=== PATIENT | male | born 1940 | race Caucasian/White ===

== ENCOUNTER 2017-08-11 07:48 | Emergency (ER) | payer MEDICARE ==
[~2017-08-11] VITALS: Ht 188 cm; Wt 108.9 kg
[~2017-08-11 07:48] MED LIST: ASCO500 PO; ASPI81CH PO; ASPI81EC PO; Aspirin EC81 MG PO; C Complex1000 MG PO; CITA20 PO; CLOP75 PO; CYCL10 PO; Cleocin HCl300 MG PO; DOC250 PO; ESCI20 PO; FLUO20; FURO20 PO; FURO40 PO; GABA300 PO; GLUCOPHAGE; HYDACE5 PO; HYDR-86 PO; INSULANI SUBQ; INSULANPEN SC; LISI20 PO; LISI5 PO; LORA.5 PO; MELA3 PO; METF500C PO; METO25ER PO; METOPROLOL SUCCINATE; NAPR500; NATE60; Norvasc2.5 MG PO; ONDA4 PO; ONDA4ODT MM; OXYACE5T; OXYACE5T PO; OXYC5; POTCHL10ER PO; PRAVASTATIN SOD10 MG PO; PROACE100; Percocet 5-3251 EACH PO; SIMV40 PO; TAMS.4ER PO; Ultram50 MG PO; VICODIN 5-3001 EACH; VICODIN 5-3001 EACH PO; VITAMIN C; ZOLP12.5 PO
[2017-08-11] MEDS ORDERED: METF500C PO (08:32)
[2017-08-11] MEDS ORDERED: LISI5 PO (08:34)
== END 2017-08-11 09:42 | disposition home or self-care (01) ==
LOC: ER 07:48
DX: S70.01XA Contusion of right hip, initial encounter (principal); M25.512 Pain in left shoulder; M25.511 Pain in right shoulder; E11.40 Type 2 diabetes mellitus with diabetic neuropathy, unspecified; I11.0 Hypertensive heart disease with heart failure; I50.9 Heart failure, unspecified; E78.5 Hyperlipidemia, unspecified; F32.9 Major depressive disorder, single episode, unspecified; Z88.2 Allergy status to sulfonamides; Z88.1 Allergy status to other antibiotic agents; Z79.899 Other long term (current) drug therapy; Z79.4 Long term (current) use of insulin; Z86.73 Personal history of transient ischemic attack (TIA), and cerebral infarction without residual deficits; Z87.891 Personal history of nicotine dependence; W01.0XXA Fall on same level from slipping, tripping and stumbling without subsequent striking against object, initial encounter
CPT/HCPCS: 73502; 99283

== ENCOUNTER 2018-03-30 14:58 | Inpatient (IN) | payer MEDICARE ==
[~2018-03-30] VITALS: Ht 190.5 cm; Wt 104.1 kg
[~2018-03-30 14:58] MED LIST changes: -OXYACE5T; +Percocet 10-321 EACH
[2018-03-30 16:16] LABS: BASOPHILS ABSOLUTE AUTO 0.05 K/mm3 (0.00-0.23); BASOPHILS PERCENT AUTO 0 % (0-2); EOSINOPHILS ABSOLUTE AUTO 0.01 K/mm3 (0.00-0.68); EOSINOPHILS PERCENT AUTO 0 % (0-6); Hematocrit 42.1 % (37.0-53.0); IMMATURE GRAN ABSOLUTE AUTO 0.17 K/mm3 (0.00-0.10); IMMATURE GRAN PERCENT AUTO 1 % (0-1); LYMPHOCYTES ABSOLUTE AUTO 0.68 K/mm3 (0.84-5.20); LYMPHOCYTES PERCENT AUTO 4 % (21-46); MONOCYTES ABSOLUTE AUTO 1.27 K/mm3 (0.16-1.47); MONOCYTES PERCENT AUTO 8 % (4-13); Mean Corpuscular HGB 29.9 pg (26.0-34.0); Mean Corpuscular HGB Conc 33.3 g/dL (31.5-36.5); Mean Corpuscular Volume 90 fL (80-100); Mean Platelet Volume 9.4 fL (9.1-12.4); NEUTROPHILS ABSOLUTE AUTO 14.15 K/mm3 (1.96-9.15); NEUTROPHILS PERCENT AUTO 87 % (41-73); Platelet Count 317 K/mm3 (150-400); RDW Coefficient Variation 12.4 % (11.7-14.2); RDW Standard Deviation 40.8 fL (35.1-46.3); Red Blood Cell Count 4.69 M/mm3 (4.30-5.90); White Blood Cell Count 16.33 K/mm3 (4.00-11.30)
[2018-03-30 16:37] LABS: International Normalized Ratio 1.15
[2018-03-30 16:40] LABS: Troponin I 0.075 ng/mL (0.000-0.040)
[2018-03-30 16:46] LABS: Alanine Aminotransfer (ALT/SGP 10 U/L (12-78); Albumin, Blood 2.1 g/dL (3.4-5.0); Albumin/Globulin Ratio 0.4 (0.8-1.8); Alk Phos 167 U/L (50-136); Anion Gap 15 mmol/L (6-16); Aspartate Aminotrans (AST/SGOT 16 U/L (12-37); Bilirubin, Total 1.2 mg/dL (0.1-1.0); Blood Urea Nitrogen 25 mg/dL (8-24); Bun/Creatinine Ratio 27.7 (12.0-20.0); CO2, Blood 21 mmol/L (21-32); Calcium, Blood 8.7 mg/dL (8.5-10.1); Chloride, Blood 90 mmol/L (98-108); Globulin, Blood 5.7 g/dL (2.2-4.0); Glomerular Filtration Rate >60 (60-); Glucose, Blood 304 mg/dL (70-99); Potassium, Blood 4.3 mmol/L (3.5-5.5); Sodium, Blood 126 mmol/L (136-145); Total Protein, Blood 7.8 g/dL (6.4-8.2)
[2018-03-30] MEDS ORDERED: CLOP75 PO (18:19)
[2018-03-30] MEDS ORDERED: INSULANPEN SC (18:19)
[2018-03-30] MEDS ORDERED: METF500C PO (18:19)
[2018-03-30] MEDS ORDERED: CITA20 PO (18:20)
[2018-03-30] MEDS ORDERED: FURO20 PO (18:20)
[2018-03-30] MEDS ORDERED: POTCHL10ER PO (18:20)
[2018-03-30] MEDS ORDERED: GABA300 PO (18:20)
[2018-03-30] MEDS ORDERED: ONDA8 PO (18:21)
[2018-03-30] MEDS ORDERED: Oxycodone-Apap1 EAC3 PO ×2 (18:21→18:23)
[2018-03-30] MEDS ORDERED: LISI20 PO (18:22)
--- NOTE | 2018-03-30 21:30 | NUR ---
ASSUMED CARE- PT ARRIVES TO [facility] FROM ER VIA GURNEY AND SLIDES HIMSELF OVER TO HOSPITAL BED WITH MINIMAL ASSIST. PT IS AOX4 AT THIS TIME. BLOOD PRESSURE IS HYPERTENSIVE- PT TO BE MEDICATED WITH METOPROLOL, ALL OTHER VSS. PT REPORTING PAIN TO L SHOULDER THAT IS MANAGEABLE AT THIS TIME.LUNG SOUNDS CLEAR THROUGHOUT, PT NOTED TO BE WEAK. REPORTS THAT HE USES A WALKER AT BASELINE. PT ORIENTED TO ROOM AND CALL LIGHT SYSTEM, INFORMED TO CALL FOR ASSISTANCE WITH AMBULATION. WILL CONTINUE WITH ASSESSMENT AND ADMISSION. BED IN LOW POSITION, CALL LIGHT IN REACH. BED ALARM SET FOR SAFETY.
[2018-03-30] MEDS ORDERED: MELATONIN 10 M1 EACH PO (22:34)
[2018-03-30] MEDS ORDERED: CYCL10 PO (22:35)
[2018-03-30] MEDS ORDERED: Fish Oil Conc1 EACH PO (22:36)
[2018-03-30] MEDS ORDERED: ASCO500 PO (22:36)
--- NOTE | 2018-03-31 03:30 | NUR ---
PHYSICIAN CONTACTED- PT REPORTING CONTINUED PAIN OF 10/10 UPON WAKING AFTER BEING MEDICATED FOR PAIN INITIALLY. DR GAUTHIER CONTACTED AND ORDERS RECEIVED FOR HOME DOSE OF PERCOCET. WILL INPUT ORDERS AND ADMINISTER.
[2018-03-31 04:07] LABS: BASOPHILS ABSOLUTE AUTO 0.03 K/mm3 (0.00-0.23); BASOPHILS PERCENT AUTO 0 % (0-2); EOSINOPHILS ABSOLUTE AUTO 0.06 K/mm3 (0.00-0.68); EOSINOPHILS PERCENT AUTO 0 % (0-6); Hematocrit 38.7 % (37.0-53.0); Hemoglobin 13.1 g/dL (13.5-17.5); IMMATURE GRAN ABSOLUTE AUTO 0.14 K/mm3 (0.00-0.10); IMMATURE GRAN PERCENT AUTO 1 % (0-1); LYMPHOCYTES PERCENT AUTO 7 % (21-46); MONOCYTES ABSOLUTE AUTO 1.39 K/mm3 (0.16-1.47); MONOCYTES PERCENT AUTO 9 % (4-13); Mean Corpuscular HGB 29.1 pg (26.0-34.0); Mean Corpuscular HGB Conc 33.9 g/dL (31.5-36.5); Mean Platelet Volume 9.7 fL (9.1-12.4); NEUTROPHILS ABSOLUTE AUTO 12.73 K/mm3 (1.96-9.15); NEUTROPHILS PERCENT AUTO 83 % (41-73); Platelet Count 330 K/mm3 (150-400); RDW Coefficient Variation 12.4 % (11.7-14.2); RDW Standard Deviation 39.3 fL (35.1-46.3); White Blood Cell Count 15.35 K/mm3 (4.00-11.30)
[2018-03-31 04:10] LABS: Mean Corpuscular Volume 86 fL (80-100)
[2018-03-31 04:35] LABS: Anion Gap 10 mmol/L (6-16); Blood Urea Nitrogen 24 mg/dL (8-24); Bun/Creatinine Ratio 28.1 (12.0-20.0); CHOL/HDL RATIO 4.2; CO2, Blood 25 mmol/L (21-32); Chloride, Blood 95 mmol/L (98-108); Cholesterol 71 mg/dL (50-200); Creatinine, Blood 0.85 mg/dL (0.60-1.20); Glomerular Filtration Rate >60 (60-); Glucose, Blood 179 mg/dL (70-99); HDL Cholesterol 17 mg/dL (>39); LDL/HDL RATIO 1.8; Low Density Lipoprotein Chol 30 mg/dL (0-110); Potassium, Blood 3.8 mmol/L (3.5-5.5); Sodium, Blood 130 mmol/L (136-145); Triglycerides 119 mg/dL (30-160); Very Low Density Lipoprot Chol 23 mg/dL (6-32)
--- NOTE | 2018-03-31 06:45 | NUR ---
SHIFT SUMMARY- PT HAS REMAINED AOX4 THROUGHOUT SHIFT WITH SOME EPISODES OF DISORIENTATION- REORIENTED WELL. BLOOD PRESSURE ELEVATED UPON ARRIVAL, PT MEDCATED WITH HYDRALAZINE ONCE WITH DECREASE IN BLOOD PRESSURE. PT HAS BEEN COOPERATIVE WITH CARE. PT NOTED TO HAVE SOME APHASIA THROUGHOUT THE NIGHT AND DIFFICULTY EXPRESSING NEEDS AT TIMES. PT MEDICATED TWICE FOR PAIN TO LEFT SHOULDER THAT INCREASED TO 10/10 UPON LYING ON LEFT SIDE WHILE SLEEPING. PT WITH IMPULSIVE TENDENCIES AND ATTEMPTS TO SELF-AMBULATE OCCASIONALLY, ENCOURAGED TO CALL FOR ASSISTANCE. BED ALARM SET FOR SAFETY. NO OTHER CHANGES NOTED FROM INITIAL ASSESSMENT. WILL CONTINUE TO MONITOR AND REPORT TO ONCOMING RN. BED IN LOW POSITION,CALL LIGHT IN REACH.
--- NOTE | 2018-03-31 10:46 | NUR ---
ECHOCARDIOGRAM COMPLETE
--- NOTE | 2018-03-31 16:29 | NUR ---
NOTE PT ALERT AND ORIENTED. SR. NO ECTOPY. VSS. NO FEVER. ORTHO HERE TO SEE PT LEFT SHOULDER. NO ORDERS AT THIS TIME. PT HAS STEPT OUT FOR AWHILE. CALLED TO REQUEST AN MRI OF HIS HEAD TO TRY AND DX DEMENTIA TO QUALIFY HIM FOR MEDICADE. PT RESTING. BED ALARM ON. CONTINUE POT.
--- NOTE | 2018-03-31 17:35 | NUR ---
Per admit trigger, I met with Mr. Chirinos to discuss advanced care planning. He is very tired and visit kept short. He did not believe he needed documentation of his wishes as his "knows what to do." I will remain available.
--- NOTE | 2018-04-01 06:38 | NUR ---
SHIFT SUMMARY- PT HAS REMAINED ORIENTED TO SELF THOUGHOUT THE NIGHT, REQUIRING FREQUENT ORIENTATION TO TIME AND PLACE, BUT HAS BEEN MORE ORIENTED THIS AM AND ABLE TO RETAIN INFORMATION MORE CLEARLY. UPON 0400 ASSESSMENT, PT WAS ORIENTED TO PERSON, PLACE, TIME AND EVENT. BP ELEVATED THIS AM, DECREASED WITH ORDERED MEDICATIONS. ALL OTHER VSS. PT HAS REMAINED PLEASANT AND COOPERATIVE WITH CARE THROUGHOUT THE NIGHT. PT MEDICATED TWICE FOR PAIN TO LEFT SHOULDER THAT DECREASED WITH ORDERED MEDICATIONS. PT DID NOT ATTEMPT TO SELF-AMBULATE AND UTILIZED CALL LIGHT ONCE THROUGHOUT SHIFT. EVENING DOSE OF LANTUS HELD DUE TO LOW CBG TAKEN LAST NIGHT. NO OTHER CHANGES NOTED FROM INITIAL ASSESSMENT. WILL CONTINUE TO MONITOR AND REPORT TO ONCOMING SHIFT RN. BED IN LOW POSITION, CALL LIGHT IN REACH. BED ALARM SET FOR SAFETY.
--- NOTE | 2018-04-01 08:35 | NUR ---
initial assessment: Pt resting in bed. Wakes to verbal stimulus. Oriented to place, person and following directions. Seems very forgetful. Pt C/O pain in his L shoulder. Rates it a 10/. Will medicate per orders. VSS. LS diminished. HR reg. Bt positive. Pulses palp. Bed alarm on. Physician in room to talk with pt. Will follow through with new orders. Call light in reach and bed alarm on.
[2018-04-01 18:09] LABS: Source, Urine Clean Catch
--- NOTE | 2018-04-01 18:14 | NUR ---
SHIFT SUMMARY: Pt confused in bed. Oriented to self and at this time. Disoriented to daughter, situation, place. Pt appears mottled in his extrimities at this time. BP elevated. Treated per orders. Urine has foul smell. Sent UA. Pt still C/O severe L shoulder pain. Medicated with tramadol and Tylenol per orders. concerned that Percocet making him more confused. Pt has been dowsing on and off this shift. He has been fairly clear mentally until he woke up from napping this evening at around 1700 to void. Pt woke much more confused then he was this AM. He also appeared to be in severe pain in his L shoulder. Sling at bedside to place on arm. Will report to night RN.
[2018-04-01 18:19] LABS: Bilirubin, Urine Neg (Neg); Blood, Urine 5+ (Neg); Color, Urine Yellow (P-Yellow); Glucose Qualitative, Urine Neg (Neg); Ketones, Urine 1+ (Neg); Leukocyte Esterase, Urine 3+ (Neg); Nitrite, Urine Pos (Neg); Protein, Urine 3+ (Neg); Urobilinogen, Urine NORM (Normal)
[2018-04-01 18:39] LABS: Appearance, Urine Cloudy (Clear)
[2018-04-01 18:40] LABS: Squamous Epithelial Cells Few /hpf (Few); White Blood Cells, Urine 50-100 /hpf (0-5)
[2018-04-01 18:41] LABS: Bacteria Many /hpf
[2018-04-02 04:09] LABS: BASOPHILS ABSOLUTE AUTO 0.06 K/mm3 (0.00-0.23); BASOPHILS PERCENT AUTO 0 % (0-2); EOSINOPHILS ABSOLUTE AUTO 0.02 K/mm3 (0.00-0.68); EOSINOPHILS PERCENT AUTO 0 % (0-6); Hematocrit 38.5 % (37.0-53.0); Hemoglobin 12.8 g/dL (13.5-17.5); IMMATURE GRAN ABSOLUTE AUTO 0.26 K/mm3 (0.00-0.10); IMMATURE GRAN PERCENT AUTO 1 % (0-1); LYMPHOCYTES ABSOLUTE AUTO 0.53 K/mm3 (0.84-5.20); LYMPHOCYTES PERCENT AUTO 2 % (21-46); MONOCYTES ABSOLUTE AUTO 1.47 K/mm3 (0.16-1.47); MONOCYTES PERCENT AUTO 6 % (4-13); Mean Corpuscular HGB 29.6 pg (26.0-34.0); Mean Corpuscular HGB Conc 33.2 g/dL (31.5-36.5); Mean Platelet Volume 9.5 fL (9.1-12.4); NEUTROPHILS ABSOLUTE AUTO 20.48 K/mm3 (1.96-9.15); NEUTROPHILS PERCENT AUTO 90 % (41-73); Platelet Count 370 K/mm3 (150-400); RDW Coefficient Variation 12.6 % (11.7-14.2); RDW Standard Deviation 41.3 fL (35.1-46.3); Red Blood Cell Count 4.33 M/mm3 (4.30-5.90); White Blood Cell Count 22.82 K/mm3 (4.00-11.30)
[2018-04-02 04:12] LABS: Mean Corpuscular Volume 89 fL (80-100)
[2018-04-02 04:29] LABS: Albumin, Blood 1.9 g/dL (3.4-5.0); Anion Gap 9 mmol/L (6-16); Blood Urea Nitrogen 29 mg/dL (8-24); Bun/Creatinine Ratio 24.2 (12.0-20.0); CO2, Blood 26 mmol/L (21-32); Calcium, Blood 8.8 mg/dL (8.5-10.1); Chloride, Blood 97 mmol/L (98-108); Glomerular Filtration Rate >60 (60-); Glucose, Blood 106 mg/dL (70-99); Phosphorus, Blood 2.8 mg/dL (2.5-4.9); Potassium, Blood 3.7 mmol/L (3.5-5.5); Sodium, Blood 132 mmol/L (136-145)
--- NOTE | 2018-04-02 06:31 | NUR ---
SHIFT SUMMARY- PT AOX4 AT START OF SHIFT, BUT CONTINUES TO BE DISORIENTED UPON WAKING. PT UNABLE TO STATE PLACE, TIME, OR EVENT. STATES THAT HE RECOGNIZES THIS RN AND THAT HE IS IN A BED OR AT [facility] IN [place]. WHEN RE-ORIENTED, PT STATES "OH YEAH. I REMEMBER", BUT UNSURE IF HE IS FULLY REORIENTED. PT MEDICATED ONCE FOR PAIN THROUGHOUT THE NIGHT AND UTILIZED HEATING PAD FOR COMFORT, WHICH HE TOLERATED WELL. PT REMAINS WEAK AND IS UNABLE TO FOLLOW DIRECTION WELL WITH MOVEMENT THROUGHOUT THE NIGHT, CONTINUES TO STRUGGLE WITH GETTING UP AND OUT OF BED WITH SHOULDER PAIN. PT ASSISTED MULTIPLE TIMES WITH URINAL USE IN BED OR AT BEDSIDE. NO OTHER CHANGES NOTED FROM INITIAL ASSESSMENT. WILL CONTINUE TO MONITOR AND REPORT TO ONCOMING SHIFT. RN. BED IN LOW POSITION, CALL LIGHT IN REACH. BED ALARM SET FOR SAFETY.
--- NOTE | 2018-04-02 07:35 | NUR ---
NURSING PCU DAYSHIFT: Assumed care of pt at approx 0700. Oriented to self and family, unaware of location or current situation, cooperative w/care. C/O pain in L shoulder even at rest though increases significantly w/movement, treating w/meds, positioning and heat application. Skin is fairly intact w/scattered scabs on ext's. Tele in place, NSR, no c/o CP/pressure, SBP 140's, no noted edema. L/S w/fine bibasilar crackles, respirations shallow, no noted cough, O2 sat upper 90's on RA. Abd SNT, BT+, incontinent of urine, attends in place. PIV x1, s/l. No s/s of acute distress at this time. 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 Pt denied any current questions/needs. Awaiting rounding from PMD, cardiology consult recalled to answering service by CN. Bed alarm will be used for safety purposes, cont to monitor for changes.
--- NOTE | 2018-04-02 14:45 | NUR ---
NURSING PCU TRANSFER SUMMARY: No acute changes noted t/o the a.m. Seen by PMD, new d/o received. Head MRI completed, pt tolerated well. Spouse at bedside t/o the a.m., update provided, plan of care discussed. OT worked w/pt, see eval in chart. No s/s of acute distress, awaiting callback from accepting RN, monitor until xfer is completed.
--- NOTE | 2018-04-02 17:45 | NUR ---
SUMMARY PT TRANSFER TO [place] [id number] FROM PCU 16. HE IS A/O X3, STATE NO PAIN/DISCOMFORT. STATE CHR N/T HANDS & FEET D/T HX CHEMO. LC, JOURNEYMAN WIREMAN EQUAL. NO FACIAL DROOP OR SLURRED SPEECH. STATE FEELS @ BASELINE, & DAUGHTER @ BEDSIDE AGREE. STATE KNOWLEDGE THAT MRI WAS + FOR CVA, REQUESTS TO SPEAK WITH DR TAVERAS FOR CLARIFICATION & TX. DR NOTIFIED. PT UP IN CHAIR @ THIS TIME, PLEASANT AFFECT. VSS.
[2018-04-03 05:12] LABS: BASOPHILS ABSOLUTE AUTO 0.04 K/mm3 (0.00-0.23); BASOPHILS PERCENT AUTO 0 % (0-2); EOSINOPHILS ABSOLUTE AUTO 0.07 K/mm3 (0.00-0.68); EOSINOPHILS PERCENT AUTO 0 % (0-6); Hemoglobin 12.1 g/dL (13.5-17.5); IMMATURE GRAN ABSOLUTE AUTO 0.21 K/mm3 (0.00-0.10); IMMATURE GRAN PERCENT AUTO 1 % (0-1); LYMPHOCYTES ABSOLUTE AUTO 1.27 K/mm3 (0.84-5.20); LYMPHOCYTES PERCENT AUTO 6 % (21-46); MONOCYTES ABSOLUTE AUTO 1.21 K/mm3 (0.16-1.47); MONOCYTES PERCENT AUTO 6 % (4-13); Mean Corpuscular HGB 29.4 pg (26.0-34.0); Mean Corpuscular HGB Conc 33.6 g/dL (31.5-36.5); Mean Corpuscular Volume 87 fL (80-100); Mean Platelet Volume 9.6 fL (9.1-12.4); NEUTROPHILS ABSOLUTE AUTO 17.03 K/mm3 (1.96-9.15); NEUTROPHILS PERCENT AUTO 86 % (41-73); Platelet Count 386 K/mm3 (150-400); RDW Coefficient Variation 12.8 % (11.7-14.2); RDW Standard Deviation 40.8 fL (35.1-46.3); Red Blood Cell Count 4.12 M/mm3 (4.30-5.90); White Blood Cell Count 19.83 K/mm3 (4.00-11.30)
--- NOTE | 2018-04-03 05:52 | NUR ---
*SHIFT SUMMARY* PATIENT IS ALERT AND CONFUSED AT TIMES. COMPLAINS OF PAIN THROUGHOUT THE NIGHT. WHEN ASKED WHERE HE HURTS HE SAYS ALL OVER. PATIENT MEDICATED ORDERED. PATIENT ALSO COMPLAINS ABOUT HAVING TO LISTEN TO OTHER PATIENTS YELLING. PATIENT WAS BOTH CONTINENT AND INCONTINENT THROUGHOUT THE NIGHT. PT DOES NOT USE CALL LIGHT APPROPRIATELY. BED LOCKED AND LOWERED WITH ALARM ON.
[2018-04-03 06:10] LABS: Albumin, Blood 1.8 g/dL (3.4-5.0); Anion Gap 8 mmol/L (6-16); Blood Urea Nitrogen 26 mg/dL (8-24); CO2, Blood 27 mmol/L (21-32); Calcium, Blood 8.4 mg/dL (8.5-10.1); Chloride, Blood 96 mmol/L (98-108); Creatinine, Blood 0.96 mg/dL (0.60-1.20); Glomerular Filtration Rate >60 (60-); Glucose, Blood 117 mg/dL (70-99); Phosphorus, Blood 2.8 mg/dL (2.5-4.9); Potassium, Blood 3.8 mmol/L (3.5-5.5); Sodium, Blood 131 mmol/L (136-145)
[2018-04-03] MEDS ORDERED: ASPI81CH PO (12:18)
[2018-04-03] MEDS ORDERED: ATOR40TA PO (12:19)
--- NOTE | 2018-04-03 12:24 | NUR ---
DISCHARGE DR PRITCHARD INITIALLY ORDER TESTS THIS AM, MRA HEAD, CAROTID US, HOWEVER AFTER IN TO SEE PT & DISCUSS WITH PT/, D/C ORDERS FOR TESTS & PLACE D/C HOME ORDER. ORDER IV ROCEPHIN TO BE GIVEN PRIOR TO D/C, FINAL DOSE. PT & STATE READY FOR D/C HOME, PLEASANT, APPRECIATIVE. D/C INSTRUCT PROVIDED W EMPHASIS ON S/S CVA, UTI & F/U WITH PHYSICIANS.
== END 2018-04-03 14:15 | disposition home health service (06) | DRG 64 ==
LOC: ER 14:58 → PCU 14:59 → ER 18:43 → PCU 20:55 → MEDS 04-02 13:48 → PCU 04-02 13:48 → MEDS 04-02 15:10 → ENPENDDIS 04-03 11:58 → EDPENDDIS 04-03 11:58 → MEDS 04-03 14:15
PROVIDERS: Physician Assistant; ADMIT Family Medicine
DX: I63.89 Other cerebral infarction (principal); G92 Toxic encephalopathy; N39.0 Urinary tract infection, site not specified; E87.1 Hypo-osmolality and hyponatremia; R47.81 Slurred speech; I10 Essential (primary) hypertension; I16.0 Hypertensive urgency; R79.89 Other specified abnormal findings of blood chemistry; D72.829 Elevated white blood cell count, unspecified; I25.10 Atherosclerotic heart disease of native coronary artery without angina pectoris; E11.65 Type 2 diabetes mellitus with hyperglycemia; F32.9 Major depressive disorder, single episode, unspecified; Z91.14 Patient's other noncompliance with medication regimen; Z79.4 Long term (current) use of insulin; M70.812 Other soft tissue disorders related to use, overuse and pressure, left shoulder
CPT/HCPCS: 36415; 70450; 70551; 71046; 73030; 80048; 80053; 80061; 80069; 81001; 82550; 82947; 84484; 85025; 85610; 87077; 87086; 87186; 92610; 93005; 93010; 93306; 93880; 96365; 96372; 96374; 96375; 96376; 97116; 97162; 97166; 97530; 99285-25; G0378; J0360; J0696; J1650; J1815; J3010; J7050

== ENCOUNTER → 2019-03-11 | Outpatient (CLI) | payer MEDICARE, OTHER ==
[~2019-03-11] MED LIST changes: +ATOR40TA PO; +Fish Oil Conc1 EACH PO; +MELATONIN 10 M1 EACH PO; +ONDA8 PO; +Oxycodone-Apap1 EAC3 PO
== END | disposition home or self-care (01) ==
LOC: LAB SHORT 11:53 → LAB EV 11:53
DX: L02.214 Cutaneous abscess of groin (principal)
CPT/HCPCS: 87070; 87075; 87077; 87147; 87186; 87205

== ENCOUNTER 2020-03-30 20:13 | Emergency (ER) | payer MEDICARE ==
[~2020-03-30] VITALS: Ht 190.5 cm; Wt 108.9 kg
[~2020-03-30 20:13] MED LIST changes: -ATOR40TA PO; -MELATONIN 10 M1 EACH PO
[2020-03-30 21:20] LABS: BASOPHILS ABSOLUTE AUTO 0.06 K/mm3 (0.00-0.23); BASOPHILS PERCENT AUTO 1 % (0-2); EOSINOPHILS ABSOLUTE AUTO 0.72 K/mm3 (0.00-0.68); EOSINOPHILS PERCENT AUTO 9 % (0-6); Hematocrit 31.1 % (37.0-53.0); Hemoglobin 10.3 g/dL (13.5-17.5); IMMATURE GRAN ABSOLUTE AUTO 0.02 K/mm3 (0.00-0.10); IMMATURE GRAN PERCENT AUTO 0 % (0-1); LYMPHOCYTES PERCENT AUTO 18 % (21-46); MONOCYTES ABSOLUTE AUTO 0.67 K/mm3 (0.16-1.47); MONOCYTES PERCENT AUTO 9 % (4-13); Mean Corpuscular HGB 29.3 pg (26.0-34.0); Mean Corpuscular HGB Conc 33.1 g/dL (31.5-36.5); Mean Corpuscular Volume 88 fL (80-100); Mean Platelet Volume 9.5 fL (9.1-12.4); NEUTROPHILS ABSOLUTE AUTO 5.03 K/mm3 (1.96-9.15); NEUTROPHILS PERCENT AUTO 64 % (41-73); Platelet Count 293 K/mm3 (150-400); RDW Coefficient Variation 12.8 % (11.7-14.2); RDW Standard Deviation 41.3 fL (35.1-46.3); Red Blood Cell Count 3.52 M/mm3 (4.30-5.90)
[2020-03-30] MEDS ORDERED: HYDPAM25 PO (21:34)
[2020-03-30] MEDS ORDERED: CLIN300 PO (21:34)
[2020-03-30 21:40] LABS: Anion Gap 3 mmol/L (6-16); Blood Urea Nitrogen 24 mg/dL (8-24); Bun/Creatinine Ratio 20.5 (12.0-20.0); CO2, Blood 28 mmol/L (21-32); Calcium, Blood 8.3 mg/dL (8.5-10.1); Chloride, Blood 104 mmol/L (98-108); Creatinine, Blood 1.17 mg/dL (0.60-1.20); Glomerular Filtration Rate >60 (60-); Glucose, Blood 330 mg/dL (70-99); Potassium, Blood 5.1 mmol/L (3.5-5.5); Sodium, Blood 135 mmol/L (136-145)
== END 2020-03-30 22:25 | disposition home or self-care (01) ==
LOC: ER 20:13
PROVIDERS: Emergency Medicine
DX: L03.115 Cellulitis of right lower limb (principal); L30.9 Dermatitis, unspecified; E11.65 Type 2 diabetes mellitus with hyperglycemia; I10 Essential (primary) hypertension; E78.5 Hyperlipidemia, unspecified; Z86.73 Personal history of transient ischemic attack (TIA), and cerebral infarction without residual deficits; Z88.2 Allergy status to sulfonamides; Z88.1 Allergy status to other antibiotic agents; Z79.82 Long term (current) use of aspirin; Z79.02 Long term (current) use of antithrombotics/antiplatelets; Z79.899 Other long term (current) drug therapy
CPT/HCPCS: 36415; 80048; 85025; 96365; 99283-25; A9270; J2543

== ENCOUNTER 2020-04-12 19:38 | Emergency (ER) | payer MEDICARE ==
[~2020-04-12] VITALS: Ht 190.5 cm; Wt 113.4 kg
[~2020-04-12 19:38] MED LIST changes: +CLIN300 PO; +HYDPAM25 PO
[2020-04-12 20:38] LABS: BASOPHILS ABSOLUTE AUTO 0.05 K/mm3 (0.00-0.23); BASOPHILS PERCENT AUTO 1 % (0-2); EOSINOPHILS ABSOLUTE AUTO 0.18 K/mm3 (0.00-0.68); EOSINOPHILS PERCENT AUTO 2 % (0-6); Hematocrit 36.9 % (37.0-53.0); Hemoglobin 12.4 g/dL (13.5-17.5); IMMATURE GRAN ABSOLUTE AUTO 0.03 K/mm3 (0.00-0.10); IMMATURE GRAN PERCENT AUTO 0 % (0-1); LYMPHOCYTES ABSOLUTE AUTO 0.91 K/mm3 (0.84-5.20); LYMPHOCYTES PERCENT AUTO 12 % (21-46); MONOCYTES ABSOLUTE AUTO 0.61 K/mm3 (0.16-1.47); MONOCYTES PERCENT AUTO 8 % (4-13); Mean Corpuscular HGB Conc 33.6 g/dL (31.5-36.5); Mean Corpuscular Volume 86 fL (80-100); Mean Platelet Volume 9.8 fL (9.1-12.4); NEUTROPHILS ABSOLUTE AUTO 5.88 K/mm3 (1.96-9.15); NEUTROPHILS PERCENT AUTO 77 % (41-73); Platelet Count 283 K/mm3 (150-400); RDW Coefficient Variation 13.2 % (11.7-14.2); RDW Standard Deviation 41.4 fL (35.1-46.3); Red Blood Cell Count 4.27 M/mm3 (4.30-5.90); White Blood Cell Count 7.66 K/mm3 (4.00-11.30)
[2020-04-12 21:38] LABS: Troponin I 0.101 ng/mL (0.000-0.040)
[2020-04-12 21:48] LABS: Alanine Aminotransfer (ALT/SGP 11 U/L (12-78); Albumin, Blood 3.3 g/dL (3.4-5.0); Albumin/Globulin Ratio 0.8 (0.8-1.8); Alk Phos 127 U/L (50-136); Anion Gap 8 mmol/L (6-16); Aspartate Aminotrans (AST/SGOT 17 U/L (12-37); Bilirubin, Total 0.6 mg/dL (0.1-1.0); Blood Urea Nitrogen 19 mg/dL (8-24); Bun/Creatinine Ratio 17.3 (12.0-20.0); CO2, Blood 25 mmol/L (21-32); Calcium, Blood 8.9 mg/dL (8.5-10.1); Chloride, Blood 104 mmol/L (98-108); Globulin, Blood 3.9 g/dL (2.2-4.0); Glomerular Filtration Rate >60 (60-); Glucose, Blood 203 mg/dL (70-99); Potassium, Blood 4.1 mmol/L (3.5-5.5); Sodium, Blood 137 mmol/L (136-145); Total Protein, Blood 7.2 g/dL (6.4-8.2)
[2020-04-12] MEDS ORDERED: LIDO700A20 TOP (23:02)
== END 2020-04-13 00:18 | disposition home or self-care (01) ==
LOC: ER 19:38
PROVIDERS: Physician Assistant
DX: B02.9 Zoster without complications (principal)
CPT/HCPCS: 36415; 71045; 74176; 80053; 84484; 85025; 93005; 93010; 96374; 99285-25; A9270; J1170

== ENCOUNTER 2020-04-29 17:49 | Inpatient (IN) | payer MEDICARE ==
[~2020-04-29] VITALS: Ht 190.5 cm; Wt 99.8 kg
[~2020-04-29 17:49] MED LIST changes: +LIDO700A20 TOP
[2020-04-29 18:29] LABS: Source, Urine Catheter
[2020-04-29 18:36] LABS: BASOPHILS ABSOLUTE AUTO 0.02 K/mm3 (0.00-0.23); BASOPHILS PERCENT AUTO 0 % (0-2); Hematocrit 32.6 % (37.0-53.0); Hemoglobin 10.5 g/dL (13.5-17.5); LYMPHOCYTES ABSOLUTE AUTO 0.39 K/mm3 (0.84-5.20); LYMPHOCYTES PERCENT AUTO 3 % (21-46); MONOCYTES ABSOLUTE AUTO 0.72 K/mm3 (0.16-1.47); MONOCYTES PERCENT AUTO 6 % (4-13); Mean Corpuscular HGB 28.8 pg (26.0-34.0); Mean Corpuscular HGB Conc 32.2 g/dL (31.5-36.5); Mean Corpuscular Volume 89 fL (80-100); Mean Platelet Volume 10.5 fL (9.1-12.4); Platelet Count 155 K/mm3 (150-400); RDW Coefficient Variation 13.2 % (11.7-14.2); RDW Standard Deviation 43.2 fL (35.1-46.3); Red Blood Cell Count 3.65 M/mm3 (4.30-5.90); White Blood Cell Count 12.08 K/mm3 (4.00-11.30)
[2020-04-29 18:37] LABS: Appearance, Urine Hazy (Clear); Bilirubin, Urine Neg (Neg); Blood, Urine 5+ (Neg); Color, Urine Amber (P-Yellow); Glucose Qualitative, Urine Neg (Neg); Ketones, Urine 3+ (Neg); Leukocyte Esterase, Urine 2+ (Neg); Nitrite, Urine Neg (Neg); Protein, Urine 3+ (Neg); Urobilinogen, Urine NORM (Normal)
[2020-04-29 18:45] LABS: EOSINOPHILS ABSOLUTE AUTO 0.01 K/mm3 (0.00-0.68); EOSINOPHILS PERCENT AUTO 0 % (0-6); IMMATURE GRAN ABSOLUTE AUTO 0.06 K/mm3 (0.00-0.10); IMMATURE GRAN PERCENT AUTO 1 % (0-1); NEUTROPHILS ABSOLUTE AUTO 10.88 K/mm3 (1.96-9.15); NEUTROPHILS PERCENT AUTO 90 % (41-73)
[2020-04-29 18:46] LABS: Mucus Light (0-Heavy)
[2020-04-29 18:47] LABS: Bacteria Many /hpf; Oval Fat Bodies Rare /lpf; Red Blood Cells, Urine 25-50 /hpf (0-2); Renal Epithelial Rare /hpf (0-Rare); Squamous Epithelial Cells Rare /hpf (Few); Transitional Epithelial Cells Few /hpf (0-Rare)
[2020-04-29 18:50] LABS: U Amphetamine Screen Not Detected; U Barbituate Screen Not Detected; U Benzodiazapine Screen Not Detected; U Buprenorphine Screen Not Detected; U Cannabinoids Screen DETECTED; U Cocaine Screen Not Detected; U Methadone Screen Not Detected; U Methamphetamine Screen Not Detected; U Opiates Screen Not Detected; U Oxycodone Screen DETECTED; U Phencyclidine Screen Not Detected; U Propoxyphene Screen Not Detected
[2020-04-29 18:58] LABS: Alanine Aminotransfer (ALT/SGP 11 U/L (12-78); Albumin, Blood 2.5 g/dL (3.4-5.0); Albumin/Globulin Ratio 0.6 (0.8-1.8); Alk Phos 128 U/L (50-136); Anion Gap 9 mmol/L (6-16); Aspartate Aminotrans (AST/SGOT 30 U/L (12-37); Bilirubin, Total 0.6 mg/dL (0.1-1.0); Blood Urea Nitrogen 44 mg/dL (8-24); Bun/Creatinine Ratio 23.9 (12.0-20.0); CO2, Blood 20 mmol/L (21-32); CPK Creatine Kinase 300 U/L (39-308); Calcium, Blood 8.8 mg/dL (8.5-10.1); Chloride, Blood 109 mmol/L (98-108); Creatinine, Blood 1.84 mg/dL (0.60-1.20); Ethanol (Alcohol), Blood, Med <3 mg/dL; Globulin, Blood 4.3 g/dL (2.2-4.0); Glomerular Filtration Rate 38 (60-); Glucose, Blood 196 mg/dL (70-99); Potassium, Blood 4.9 mmol/L (3.5-5.5); Sodium, Blood 138 mmol/L (136-145); Total Protein, Blood 6.8 g/dL (6.4-8.2)
[2020-04-29 19:05] LABS: BASOPHILS PERCENT MAN 0 % (0-2); EOSINOPHILS PERCENT MAN 0 % (0-6); LYMPHOCYTES ABSOLUTE MAN 0.36 K/mm3 (0.84-5.20); LYMPHOCYTES PERCENT MAN 3 % (21-46); MONOCYTES ABSOLUTE MAN 0.24 K/mm3 (0.16-1.47); MONOCYTES PERCENT MAN 2 % (4-13); NEUTROPHILS ABSOLUTE MAN 11.47 K/mm3 (1.96-9.15); SEG NEUTROPHILS PERCENT MAN 95 % (41-73); TOTAL CELLS COUNTED 100
[2020-04-29] MEDS ORDERED: METF500 PO (19:54)
[2020-04-29] MEDS ORDERED: OXYCODONE-ACET1 EAC3 PO (19:54)
[2020-04-29] MEDS ORDERED: CLOP75 PO (19:54)
[2020-04-29] MEDS ORDERED: CITA20 PO (19:54)
[2020-04-29] MEDS ORDERED: ATOR40TA PO (19:55)
[2020-04-29] MEDS ORDERED: Aspir 8181 MG PO (19:55)
[2020-04-29] MEDS ORDERED: ASCO500 PO (19:55)
[2020-04-29] MEDS ORDERED: MELATONIN10 M1 PO (19:56)
[2020-04-29] MEDS ORDERED: PREG100 PO (19:56)
[2020-04-29] MEDS ORDERED: LANTUS SOL100 UNIT/1 SC (19:57)
[2020-04-29] MEDS ORDERED: BASAGLAR K100 UNIT/1 SC (19:57)
--- NOTE | 2020-04-29 23:48 | NUR ---
PT ARRIVED TO [facility] VIA GURNEY. ON RA. ALERT. ANSWERS MOST QUESTIONS APPROPRIATELY. PT EDUCATED SUPERVISOR PLASTICS LT SYSTEM. CALL LT WITHIN REACH. BED ALARMED FOR SAFETY. WILL PROVIDE CARE T/O SHIFT.
--- NOTE | 2020-04-30 05:05 | NUR ---
SHIFT SUMMARY: ER ADMIT AT 2348. ALERT. ANSWERS MOST QUESTIONS APPROPRIATELY. FORGETFUL AT TIMES. BED ALARMED FOR PT SAFETY. ON RA. SINUS RHYTHM AT 83 ON TELE. NS AT 75 MLS/HR. RECEIVED LEVAQUIN IV. FITO ASSISTED WITH ADMISSION. NO ACUTE CHANGES. WILL CONTINUE TO PROVIDE CARE UNTIL SHIFT REPORT.
[2020-04-30 05:18] LABS: Hematocrit 30.2 % (37.0-53.0); Hemoglobin 10.1 g/dL (13.5-17.5); Mean Corpuscular HGB 29.1 pg (26.0-34.0); Mean Corpuscular HGB Conc 33.4 g/dL (31.5-36.5); Mean Corpuscular Volume 87 fL (80-100); Mean Platelet Volume 10.5 fL (9.1-12.4); Platelet Count 134 K/mm3 (150-400); RDW Coefficient Variation 13.4 % (11.7-14.2); RDW Standard Deviation 42.3 fL (35.1-46.3); Red Blood Cell Count 3.47 M/mm3 (4.30-5.90); White Blood Cell Count 9.83 K/mm3 (4.00-11.30)
[2020-04-30 05:45] LABS: Albumin, Blood 2.1 g/dL (3.4-5.0); Albumin/Globulin Ratio 0.5 (0.8-1.8); Bilirubin, Total 0.8 mg/dL (0.1-1.0); Bun/Creatinine Ratio 28.2 (12.0-20.0); Calcium, Blood 8.3 mg/dL (8.5-10.1); Creatinine, Blood 1.56 mg/dL (0.60-1.20); Globulin, Blood 4.1 g/dL (2.2-4.0); Potassium, Blood 4.4 mmol/L (3.5-5.5); Total Protein, Blood 6.2 g/dL (6.4-8.2)
[2020-04-30 05:50] LABS: BAND PERCENT MAN 8 % (0-8); BASOPHILS PERCENT MAN 0 % (0-2); EOSINOPHILS ABSOLUTE MAN 0.09 K/mm3 (0.00-0.68); EOSINOPHILS PERCENT MAN 1 % (0-6); LYMPHOCYTES ABSOLUTE MAN 0.39 K/mm3 (0.84-5.20); LYMPHOCYTES PERCENT MAN 4 % (21-46); MONOCYTES ABSOLUTE MAN 0.29 K/mm3 (0.16-1.47); MONOCYTES PERCENT MAN 3 % (4-13); NEUTROPHILS ABSOLUTE MAN 9.04 K/mm3 (1.96-9.15); SEG NEUTROPHILS PERCENT MAN 84 % (41-73); TOTAL CELLS COUNTED 100
--- NOTE | 2020-04-30 08:00 | NUR ---
PT LAYING IN BED AWAKE ALERT TO SELF, SITUATION, DOESN'T KNOW MEDICATIONS, OR WHY IN HOSP, LUNGS ARE CLEAR T/O, RESP EVEN AND UNLABORED, NO COUGH NOTED, HRR, TELE IN PLACE RUNNING SR PER MONITOR, SEE STRIP, NO EDEMA NOTED, PPP+1, CAP REFILL <3SEC, VS STABLE, AFEBRILE, IV SITE IS CLEAR AND PATENT, BTX4, ABD FLAT SOFT NONTENDER, VOIDS WITHOUT DIFF, SKIN HAS PINK LOWER EXT, WITH VERY DRY FLAKEY SKIN, WEAK, MAEW, LC, CALL LIGHT IN REACH.
--- NOTE | 2020-04-30 18:37 | NUR ---
Shift Summary Assumed care approximately 1245. Patient resting in bed moaning. Medicated for pain since assumption of care once per EMAR. Bedbath completed, lidocaine patch applied to back along with heating pad. Patient verbalized pain alleviated and tolerable with these interventions. Updated at bedside briefly. A/O, able to follow commands and call appropriately. TQ2 and as tolerated. Continent/Incontinent. WCTM and report to oncoming RN.
--- NOTE | 2020-05-01 04:06 | NUR ---
SHIFT SUMMARY ALERT, ABLE TO MAKE NEEDS KNOWN. SLOW TO RESPOND. COOPERATIVE WITH CARE. C/O PAIN/DISCOMFORT; MEDICATED PER EMAR AND REPOSITIONED DURING THE NIGHT. REFUSED TO WEAR HEATING PAD MUCH OF THE NIGHT. NO ACUTE CHANGES NOTED OVERNIGHT. DID NOT APPEAR TO REST MUCH OF THE NIGHT. CONT/INCONT. BEDREST. PT ATTEMPTED TO VISIT PATIENT DURING DAY YESTERDAY; UNABLE TO PARTICIPATE DUE TO PAIN CONTROL. BED IN LOWEST POSITION; ALARM ON. CALL LIGHT AND BELONGINGS WITHIN REACH; DOES NOT UTILIZE CALL SYSTEM. CONTINUE WITH CURRENT PLAN OF CARE. REPORT TO ONCARLENE RN.
[2020-05-01 05:15] LABS: BASOPHILS ABSOLUTE AUTO 0.04 K/mm3 (0.00-0.23); BASOPHILS PERCENT AUTO 0 % (0-2); EOSINOPHILS ABSOLUTE AUTO 0.88 K/mm3 (0.00-0.68); EOSINOPHILS PERCENT AUTO 8 % (0-6); Hematocrit 31.3 % (37.0-53.0); Hemoglobin 10.3 g/dL (13.5-17.5); IMMATURE GRAN ABSOLUTE AUTO 0.05 K/mm3 (0.00-0.10); IMMATURE GRAN PERCENT AUTO 1 % (0-1); LYMPHOCYTES PERCENT AUTO 5 % (21-46); MONOCYTES ABSOLUTE AUTO 0.97 K/mm3 (0.16-1.47); MONOCYTES PERCENT AUTO 9 % (4-13); Mean Corpuscular HGB 28.8 pg (26.0-34.0); Mean Corpuscular HGB Conc 32.9 g/dL (31.5-36.5); Mean Corpuscular Volume 87 fL (80-100); NEUTROPHILS PERCENT AUTO 77 % (41-73); Platelet Count 143 K/mm3 (150-400); RDW Coefficient Variation 13.4 % (11.7-14.2); RDW Standard Deviation 43.5 fL (35.1-46.3); Red Blood Cell Count 3.58 M/mm3 (4.30-5.90); White Blood Cell Count 10.54 K/mm3 (4.00-11.30)
[2020-05-01 05:39] LABS: Albumin/Globulin Ratio 0.5 (0.8-1.8); Bilirubin, Total 0.5 mg/dL (0.1-1.0); Bun/Creatinine Ratio 29.3 (12.0-20.0); Calcium, Blood 8.6 mg/dL (8.5-10.1); Creatinine, Blood 1.4 mg/dL (0.60-1.20); Globulin, Blood 4.3 g/dL (2.2-4.0); Potassium, Blood 4.2 mmol/L (3.5-5.5); Total Protein, Blood 6.3 g/dL (6.4-8.2)
--- NOTE | 2020-05-01 17:51 | NUR ---
SHIFT SUMMARY NO ACUTE CHANGES REGARDING MEDICAL STATUS DURING THIS SHIFT, PT IS A&O WITH OCCASIONAL FORGETFULNESS. CALM AND COOPERATIVE WITH CARE. NEW BP MEDICATIONS STARTED THIS AM. PT COMPLAINS OF PAIN T/O SHIFT, PAIN PRIMARILY NOTED WITH MOVEMENT. PT TREATED PER EMAR FOR PAIN. SHAHID ORDERED SCHEDULED OXYCOTNIN TO START THIS EVENING. PT REFUSES TO GET UP FOR MEALS, HE STATES HE WANTS TO STAY IN BED BECAUSE ITS LESS PAINFUL. HE DID HOWEVER WORK WITH PT TODAY. PT IS ALSO NOT EATING AN ADEQUATE AMOUNT. PT ATE SOME OF AN ORANGE THIS AM AND A COUPLE BITES OF A PB&J THIS AFTERNOON. EVEN WHEN PROVIDED MEALS THAT THE PT REQUESTS HE EATS VERY LITTLE. PT IS DRINKING PLENTY OF WATER T/O DAY. PT IS CURRENTLY LYING IN BED WITH CALL LIGHT WITHIN REACH. APPEARS TO BE IN NO DISTRESS @ THIS TIME.
[2020-05-02 05:21] LABS: Bun/Creatinine Ratio 28.7 (12.0-20.0); Calcium, Blood 8.7 mg/dL (8.5-10.1); Creatinine, Blood 1.29 mg/dL (0.60-1.20); Potassium, Blood 4.5 mmol/L (3.5-5.5)
--- NOTE | 2020-05-02 06:13 | NUR ---
SHIFT SUMMARY ALERT, ABLE TO MAKE NEEDS KNOWN. CONTINUES TO BE SLOW TO RESPOND AND FORGETFUL. REMINDED MULTIPLE TIMES THAT IT WAS NIGHT TIME. COOPERATIVE WITH CARE. MOANS PERIODICALLY. RECIEVING SCHEDULED OXYCONTIN; APPEARS TO BE THERAPEUTIC. MORE SO THAT PREVIOUS NIGHT. APPEARED TO REST OFF AND ON. STRENGTH APPEARS TO BE IMPROVING. ENCOURAGED TO STAND AT BEDSIDE WITH URINAL; DID VERY WELL. HYPERTENSIVE, BUT APPEARS ON TREND WITH PREVIOUS PRESSURES. BED REMAINS IN LOWEST POSITION; ALARM ON. CALL LIGHT WITHIN REACH. CONTINUE WITH CURRENT PLAN OF CARE. REPORT TO ONCOMING RN.
--- NOTE | 2020-05-02 16:49 | NUR ---
SHIFT SUMMARY PT WAS CALM AND COOPERATIVE WITH CARE THIS SHIFT, ANSWERED ORIENTATION QUESTIONS APPROPRIATELY. HOWEVER PT DOES SHOW SOME OCCASIONAL FORGETFULNESS AND CONFUSION. PT ALSO STATES AT TIMES THAT HE SEES HIS CAT IN HIS ROOM, BUT THEN ALSO STATES HE KNOWS HIS CAT IS NOT HERE. PT IS EATING SLIGHTLY BETTER TODAY. HIS BROUGHT HIM SOME SNACKS THAT HE LIKES FROM HOME AND HIS BOTTOM DENTURES. WE HOPE THIS HELPS THE PT INCREASE HIS INTAKE. PT PAIN APPEARS TO BE MORE TOLERABLE AFTER STARTING SCHEDULED OXYCODONE. PT WORKED WITH OT TODAY BUT REFUSED PT. PT IS CURRENTLY RESTING IN BED AND VISITING WITH HIS . CALL LIGHT IS WITHIN REACH. PT DOES NOT ALWAYS USE HIS CALL LIGHT. BED ALARM IS ON.
--- NOTE | 2020-05-02 20:25 | NUR ---
BP 171/140. ASYMPTOMATIC. GIVEN HS ANTIHYPERTENSIVE AND CALL PLACED TO VETERINARY RECEPTIONIST. ORDERS RECEIVED. WILL RE CHECK IN AN HR OR SO. CALL LIGHT IN REACH
--- NOTE | 2020-05-02 23:28 | NUR ---
TOLERATED HS MEDS WELL AND ASSISTED TO BED, LATER, APPEARE A LITTLE ANXIOUS AND BEGAN TO TALK ABOUT "GOD", SEEMED FIXATED ON "GOT, THE FATHER, GOD, THE SON AND GOD THE HOLY SPIRIT.." AND CONTINUED TO GET OUT OF BED, NOT TO GO TO THE BATHROOM, BUT JUST GET OUT OF BED. HIGH FALL RISK, CALL PLACED TO STOCK SUPERVISOR, RESTRAINT ORDERS FOR VEST OBTAINED. PT PLACED IN VEST FOR SAFETY FROM FALLING. BED ALARM REMAINS ON. CALL LIGHT IN REACH
--- NOTE | 2020-05-03 05:35 | NUR ---
SHIFT SUMMARY AWAKE AND MULTIPLE ATTEMPTS TO GET OUT OF BED, SETTING OFF THE ALARM AND WAS NOT REDIRECTABLE. HIGH FALL RISK. PLACED IN TRAN VEST FOR SAFETY REASONS PER SALESFORCE DEVELOPER ORDERS. HAS BEEN RESTING QUIETLY WITH FEW INTERRUPTIONS SINCE. IV ANTIBIOTICS INFUSING PER MD ORDERS - SEE MAR FOR DETAILS. CALL LIGHT IN REACH.
[2020-05-03 05:39] LABS: Hematocrit 31.2 % (37.0-53.0); Hemoglobin 10.1 g/dL (13.5-17.5); Mean Corpuscular HGB 28.1 pg (26.0-34.0); Mean Corpuscular HGB Conc 32.4 g/dL (31.5-36.5); Mean Corpuscular Volume 87 fL (80-100); Mean Platelet Volume 10.1 fL (9.1-12.4); Platelet Count 177 K/mm3 (150-400); RDW Coefficient Variation 13.7 % (11.7-14.2); RDW Standard Deviation 44.2 fL (35.1-46.3); Red Blood Cell Count 3.59 M/mm3 (4.30-5.90); White Blood Cell Count 7.35 K/mm3 (4.00-11.30)
[2020-05-03 05:54] LABS: Bun/Creatinine Ratio 26.8 (12.0-20.0); Calcium, Blood 8.3 mg/dL (8.5-10.1); Creatinine, Blood 1.38 mg/dL (0.60-1.20); Potassium, Blood 3.9 mmol/L (3.5-5.5)
[2020-05-03] MEDS ORDERED: AMLO5 PO (14:47)
[2020-05-03] MEDS ORDERED: METO25ER PO (14:47)
[2020-05-03] MEDS ORDERED: AMOCLA875 PO (14:48)
--- NOTE | 2020-05-03 15:18 | NUR ---
DISCHARGE SUMMARY PT DISCHARGED TO HOME WITH HOME HEALTH. PT LEFT ROOM VIA WHEELCHAIR AT 1520 WITH FABRIC STRETCHER ESCORT WITH SPOUSE PRESENT. IV DC'D AND BELONGINGS RETURNED. PT AND SPOUSE EDUCATED ON ALL DISCHARGE INSTRUCTIONS, ALL QUESTIONS ANSWERED. PRESCRIPTION GIVEN TO SPOUSE, COPY IN CHART.
== END 2020-05-03 15:17 | disposition home health service (06) | DRG 682 ==
LOC: ER 17:49 → MEDS 22:43
PROVIDERS: Emergency Medicine; Internal Medicine; ADMIT Internal Medicine
DX: N17.9 Acute kidney failure, unspecified (principal); G92 Toxic encephalopathy; N39.0 Urinary tract infection, site not specified; S22.071A Stable burst fracture of T9-T10 vertebra, initial encounter for closed fracture; R78.81 Bacteremia; G47.33 Obstructive sleep apnea (adult) (pediatric); Z23 Encounter for immunization; Z66 Do not resuscitate; I11.0 Hypertensive heart disease with heart failure; E78.5 Hyperlipidemia, unspecified; F32.9 Major depressive disorder, single episode, unspecified; E11.40 Type 2 diabetes mellitus with diabetic neuropathy, unspecified; E86.0 Dehydration; K52.9 Noninfective gastroenteritis and colitis, unspecified; B96.20 Unspecified Escherichia coli [E. coli] as the cause of diseases classified elsewhere; R62.7 Adult failure to thrive; M25.70 Osteophyte, unspecified joint; Z91.81 History of falling; Z68.27 Body mass index [BMI] 27.0-27.9, adult; Z85.038 Personal history of other malignant neoplasm of large intestine; Z86.73 Personal history of transient ischemic attack (TIA), and cerebral infarction without residual deficits; Z90.49 Acquired absence of other specified parts of digestive tract; Z90.89 Acquired absence of other organs; Z98.52 Vasectomy status; Z98.890 Other specified postprocedural states; Z87.891 Personal history of nicotine dependence; Z87.442 Personal history of urinary calculi; Z88.1 Allergy status to other antibiotic agents; Z88.2 Allergy status to sulfonamides; Z79.02 Long term (current) use of antithrombotics/antiplatelets; Z79.82 Long term (current) use of aspirin; Z79.899 Other long term (current) drug therapy; W18.39XA Other fall on same level, initial encounter; Y92.009 Unspecified place in unspecified non-institutional (private) residence as the place of occurrence of the external cause
CPT/HCPCS: 36415; 51701; 70450; 71250; 72125; 76770; 80048; 80053; 81001; 82550; 82947; 83605; 85025; 85027; 87040; 87077; 87086; 87186; 93005; 93010; 96365-59; 96375; 97110; 97162; 97166; 97530; 97535; 99285-25; A9270; G0008; G0480; J0295; J0360; J0696; J1650; J1956; J2270; J3010; J7030; J7120; Q2038

== ENCOUNTER 2020-11-01 08:35 | Emergency (ER) | payer MEDICARE ==
[~2020-11-01] VITALS: Ht 188 cm; Wt 99.8 kg
[~2020-11-01 08:35] MED LIST changes: +AMLO5 PO; +AMOCLA875 PO; +ATOR40TA PO; +Aspir 8181 MG PO; +BASAGLAR K100 UNIT/1 SC; +LANTUS SOL100 UNIT/1 SC; +MELATONIN10 M1 PO; +METF500 PO; +OXYCODONE-ACET1 EAC3 PO; +PREG100 PO
[2020-11-01] MEDS ORDERED: FURO20 PO (09:32)
[2020-11-01 10:28] LABS: Source, Urine Clean Catch
[2020-11-01 10:32] LABS: Appearance, Urine Cloudy (Clear); Bilirubin, Urine Neg (Neg); Blood, Urine 3+ (Neg); Color, Urine Yellow (P-Yellow); Glucose Qualitative, Urine Neg (Neg); Ketones, Urine Neg (Neg); Leukocyte Esterase, Urine 3+ (Neg); Nitrite, Urine Neg (Neg); Protein, Urine 2+ (Neg); Specific Gravity, Urine 1.015 (1.003-1.022); Urobilinogen, Urine NORM (Normal)
[2020-11-01 11:01] LABS: Bacteria Mod /hpf; White Blood Cells, Urine TNTC /hpf (0-5)
[2020-11-01 11:03] LABS: Amorphous Light (0-Heavy); Squamous Epithelial Cells Few /hpf (Few)
[2020-11-01] MEDS ORDERED: AMOCLA875 PO (11:11)
== END 2020-11-01 11:29 | disposition home or self-care (01) ==
LOC: ER 08:35
PROVIDERS: Physician Assistant
DX: E11.649 Type 2 diabetes mellitus with hypoglycemia without coma (principal); N39.0 Urinary tract infection, site not specified; E78.5 Hyperlipidemia, unspecified; F32.9 Major depressive disorder, single episode, unspecified; I50.9 Heart failure, unspecified; E11.40 Type 2 diabetes mellitus with diabetic neuropathy, unspecified; Z88.2 Allergy status to sulfonamides; Z88.1 Allergy status to other antibiotic agents; Z79.4 Long term (current) use of insulin; W19.XXXA Unspecified fall, initial encounter
CPT/HCPCS: 70450; 81001; 82947; 87077; 87086; 87186; 93005; 93010; 99285-25; A9270

== ENCOUNTER → 2021-01-19 | Outpatient (CLI) | payer MEDICARE | END | disposition home or self-care (01) | LOC: LAB SHORT 11:41 → LAB 11:41 | DX: L30.8 Other specified dermatitis (principal) | CPT/HCPCS: 88305; 88312 ==

== ENCOUNTER → 2021-02-13 | Outpatient (CLI) | payer MEDICARE | END | disposition home or self-care (01) | LOC: LAB SHORT 08:29 | DX: L02.412 Cutaneous abscess of left axilla (principal) | CPT/HCPCS: 87070; 87077; 87147; 87186; 87205 ==

== ENCOUNTER → 2021-02-21 | Outpatient (CLI) | payer MEDICARE | LOC: LAB SHORT 08:46 | DX: L98.9 Disorder of the skin and subcutaneous tissue, unspecified (principal); S20.312A Abrasion of left front wall of thorax, initial encounter; L30.8 Other specified dermatitis | CPT/HCPCS: 88305; 88312 ==

== ENCOUNTER → 2021-07-31 | Outpatient (CLI) | payer MEDICARE | END | disposition home or self-care (01) | LOC: LAB 12:04 → LAB SHORT 12:04 | DX: L02.214 Cutaneous abscess of groin (principal) | CPT/HCPCS: 87070; 87077; 87147; 87186; 87205 ==

== ENCOUNTER → 2021-11-21 | Outpatient (CLI) | payer MEDICARE ==
[2021-11-21 12:03] LABS: Bun/Creatinine Ratio 16.9 (12.0-20.0); Calcium, Blood 8.5 mg/dL (8.5-10.1); Creatinine, Blood 1.95 mg/dL (0.60-1.20); Potassium, Blood 4.7 mmol/L (3.5-5.5)
== END | disposition home or self-care (01) ==
LOC: LAB 11:51 → LAB SHORT 11:51
PROVIDERS: Family Medicine
DX: E13.9 Other specified diabetes mellitus without complications (principal)
CPT/HCPCS: 80048

== ENCOUNTER 2022-06-05 17:08 | Inpatient (IN) | payer MEDICARE ==
[~2022-06-05] VITALS: Ht 188 cm; Wt 102.0 kg
[2022-06-05] MEDS ORDERED: HYDPAM50 PO (17:34)
[2022-06-05 17:54] LABS: BASOPHILS ABSOLUTE AUTO 0.03 K/mm3 (0.00-0.23); BASOPHILS PERCENT AUTO 0 % (0-2); EOSINOPHILS ABSOLUTE AUTO 0.44 K/mm3 (0.00-0.68); EOSINOPHILS PERCENT AUTO 5 % (0-6); Hematocrit 31.1 % (37.0-53.0); Hemoglobin 9.6 g/dL (13.5-17.5); IMMATURE GRAN ABSOLUTE AUTO 0.02 K/mm3 (0.00-0.10); IMMATURE GRAN PERCENT AUTO 0 % (0-1); LYMPHOCYTES PERCENT AUTO 9 % (21-46); MONOCYTES ABSOLUTE AUTO 0.54 K/mm3 (0.16-1.47); MONOCYTES PERCENT AUTO 7 % (4-13); Mean Corpuscular HGB 24.1 pg (26.0-34.0); Mean Corpuscular HGB Conc 30.9 g/dL (31.5-36.5); Mean Corpuscular Volume 78 fL (80-100); Mean Platelet Volume 9.9 fL (9.1-12.4); NEUTROPHILS ABSOLUTE AUTO 6.42 K/mm3 (1.96-9.15); NEUTROPHILS PERCENT AUTO 79 % (41-73); Platelet Count 290 K/mm3 (150-400); RDW Coefficient Variation 16.2 % (11.7-14.2); RDW Standard Deviation 46.4 fL (35.1-46.3); Red Blood Cell Count 3.99 M/mm3 (4.30-5.90); White Blood Cell Count 8.15 K/mm3 (4.00-11.30)
[2022-06-05 18:20] LABS: Albumin, Blood 2.7 g/dL (3.4-5.0); Albumin/Globulin Ratio 0.7 (0.8-1.8); Bilirubin, Total 0.4 mg/dL (0.1-1.0); Bun/Creatinine Ratio 18.8 (12.0-20.0); Calcium, Blood 8.7 mg/dL (8.5-10.1); Creatinine, Blood 1.17 mg/dL (0.60-1.20); Globulin, Blood 4.1 g/dL (2.2-4.0); Potassium, Blood 4.8 mmol/L (3.5-5.5); Thyroid Stimulating Hormone 1.56 uIU/mL (0.360-4.800); Total Protein, Blood 6.8 g/dL (6.4-8.2)
[2022-06-05 18:21] LABS: Source, Urine Clean Catch
[2022-06-05 18:23] LABS: Appearance, Urine Clear (Clear); Bilirubin, Urine Neg (Neg); Blood, Urine 3+ (Neg); Color, Urine Yellow (P-Yellow); Glucose Qualitative, Urine 2+ (Neg); Ketones, Urine Neg (Neg); Leukocyte Esterase, Urine Neg (Neg); Nitrite, Urine Neg (Neg); Protein, Urine 2+ (Neg); Urobilinogen, Urine NORM (Normal)
[2022-06-05 18:39] LABS: Bacteria Few /hpf; Squamous Epithelial Cells Not Seen /hpf (Few)
[2022-06-05 19:24] LABS: Base Excess Venous -2.2 mmol/L; Bicarbonate Venous 22.3 mmol/L (24.0-30.0); PCO2 Venous 47.5 mmHg (38-42); pH Blood Venous 7.31 (7.34-7.37)
[2022-06-05 22:03] VITALS: BP 156/70
[2022-06-05 22:38] VITALS: BP 143/76
[2022-06-06 03:47] VITALS: BP 134/51
--- NOTE | 2022-06-06 04:36 | NUR ---
SHIFT SUMMARY NOC PT A/O X 4. FORGETFUL AT TIMES. PT HAS INTERMITTENT TREMORS IN BUE FROM PAST CHEMO TX. PT ADMIT FROM ED WITH DX OF ARF SECONDARY TO CHF EXCACERBATION WITH BILATERAL PLEURAL EFFUSION.PT HAS BEEN NON COMPLIANT WITH HOME LASIX REGIMENT. PT HAS BLE 3+ EDEMA. PT HAS RED BLANCABLE AREA BETWEEN BUTTOCKS WITH MEPILEX DRESSING IN PLACE C/D/I. ALSO RED AREA L PANNUS AND REDNESS IN GROIN FOLDS POWDER APPLIED. PT ON O2 3L/NC CONTINOUS BIOX SPO2 > 94%. ALSO ON TELE RUNNING SINUS RHYTHM HR 67 BPM. PT HAS ECHOCARDIOGRAM SCHEDULED FOR 06/06/22. PT HAS CONDOM CATHETER IN PLACE FOR URGENCY/FREQUENCY FROM LASIX AND INABILITY TO USE URINAL INDEPENDENTLY DUE TO TREMORS.PT FITO WILL BE IN DURING AM TO HELP UPDATE PT POLST BECAUSE PT HAS COMFORT CARE STATUS WHEN PT HAD COLON CANCER A FEW YEARS AGO.PT IS CURRENTLY RESTING WITH BED IN LOWEST POSITION, AND CALL LIGHT WITHIN REACH.
[2022-06-06 05:08] LABS: Bun/Creatinine Ratio 18.7 (12.0-20.0); Calcium, Blood 8.5 mg/dL (8.5-10.1); Creatinine, Blood 1.23 mg/dL (0.60-1.20); Magnesium, Blood 1.7 mg/dL (1.6-2.4); Potassium, Blood 4.1 mmol/L (3.5-5.5)
--- NOTE | 2022-06-06 06:24 | NUR ---
NOTIFIED BY ANTs SoftwareASSEMBLER HYDRAULIC BACKHOE @ 0030 THAT PT RUNNING SINUS MORE @ 37-40 FOR A FEW BEATS. PT ASYMPTOMATIC AROUSED EASILY. WILL CONTINUE TO MONITOR.
[2022-06-06 07:43] VITALS: BP 157/68
[2022-06-06 16:16] VITALS: BP 141/54
--- NOTE | 2022-06-06 17:16 | NUR ---
SUMMARY- NO ACUTE EVENTS THIS SHIFT. EXTENT OF EXERTION TODAY FOR PT WAS SITTING AT THE SIDE OF THE BED FOR 10 MINUTES. PT IS A X2 ASSIST. PT'S PAIN CONTROLLED WITH TYLENOL. CALLS APPROPRIATELY.
[2022-06-06 19:23] VITALS: BP 134/61
[2022-06-07 02:26] VITALS: BP 157/89
[2022-06-07 05:03] LABS: Calcium, Blood 8.4 mg/dL (8.5-10.1); Creatinine, Blood 1.6 mg/dL (0.60-1.20); Potassium, Blood 4.4 mmol/L (3.5-5.5)
--- NOTE | 2022-06-07 05:12 | NUR ---
PRODUCTION SUPERVISOR OFF SHIFT SUMMARY PT A/OX4. PLEASANT AND COOPERATIVE. ABLE TO MAKE NEEDS KNOWN. RT AT BEDSIDE TO ASSIST WITH CPAP. PT SATTING 100% AT 2L; DROPPED TO 1L O2 NC. PT HAD MULTIPLE EPISODES OF MORE IN THE 30'S T/O THE NIGHT. CONDOM CATH IN PLACE OVERNIGHT. CALL LIGHT ACCESSIBLE.
[2022-06-07 07:49] VITALS: BP 152/64
--- NOTE | 2022-06-07 13:48 | NUR ---
SHIFT SUMMARY DR COOK TO SEE PTN AND TRIALED HIM OFF O2, BUT DROPPED IN 80'S, SO BUMPED BACK UP TO 1L CONTINUOUS, ALSO WEARS CPAP AT NIGHT WITH 1L BLEED IN. TELEMETRY SHOWING SINUS MORE WITH HR 51, AND DR COOK ASKED FOR EKG FOR THE BRADYCARDIA. TRANSFER OF CARE TO INDY Lakhani RN. CONTINUE PLAN OF CARE.
[2022-06-07 14:29] LABS: Bun/Creatinine Ratio 20.7 (12.0-20.0); Calcium, Blood 8.3 mg/dL (8.5-10.1); Creatinine, Blood 1.5 mg/dL (0.60-1.20); Potassium, Blood 4.3 mmol/L (3.5-5.5)
--- NOTE | 2022-06-07 15:23 | NUR ---
Initial palliative care consult: Saeed is a 81 year old gentleman who was admitted for acute respiratory failure secondary to CHF on 06/05/22. He has a history of CHF, DM, SANTO with use of CPAP, colon cancer, TIA, HTN, HLD and chronic anemia. He reports that he will be 82 years old tomorrow. Saeed c/o fatigue. He states he has no other complaints. He has a history of a back injury 40+ years ago from which he has some chronic low back pain. He also reports he has bilat numb hands and bilat numbness to knees down to feet. 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 He reports a "wonderful" appetite. He states that the physicians are possibly considering a pacemaker for his bradycardia. He is on tele and consistently was in the high 40s-low 50s during this magnetic tape typewriter operator's visit today. He denies chest pain or pressure. He lives at home with his Soraida. He reports that depends on her help at home. He has a walker and a CPAP machine at home. They have two daughters, one lives in [place], [place], the other in [place]. He tells this magnetic tape typewriter operator he is happy with the quality of his life. He relies on Soraida to help him make his medical decisions. Discussed POLST and AD. He is unsure if he has a POLST at home. He is currently a DNR which reflects his wishes. He requests to not complete the POLST form unti his is present. He states his is a retired nurse and she always explains medical things to him in a way that he understands. Soraida called into Saeed's room to talk with him while this magnetic tape typewriter operator is present. Soraida confirms his DNR status and describes the care he would want which would be consistent with limited interventions. Will plan to complete POLST form when Soraida is present in room per pt's wishes. He is current order is for a DNR. PC to continue to follow for advanced care planning and completion of a POLST at pt's request.
[2022-06-07 16:26] VITALS: BP 156/68
[2022-06-07 19:26] VITALS: BP 132/96
[2022-06-08] VITALS (9 sets, daily range): BP systolic 97–132; BP diastolic 48–76
--- NOTE | 2022-06-08 07:31 | NUR ---
Shift Summary Pt states Dr. Raman said he may need a pacemaker and the Dr had put in a cardiology consult for Dr. Shaan Stein. I called Dr. Stein's answering service and requested a consult. Pt on tele running SB around 55, I rcvd 2 calls from tele about a 2 second pause and HR down to 38. No change in condition during these events. Pt c/o some pain in his back and R arm, medicated per EMAR. Condom catheter in place for I+O's. AOx4, pleasant and cooperative with care.
[2022-06-08 07:57] LABS: Bun/Creatinine Ratio 22.5 (12.0-20.0); Calcium, Blood 8.5 mg/dL (8.5-10.1); Creatinine, Blood 1.51 mg/dL (0.60-1.20); Potassium, Blood 4.4 mmol/L (3.5-5.5)
--- NOTE | 2022-06-08 09:13 | NUR ---
PLAN TO MOVE PT TO PCU DUE TO POSSIBLE 3RD DEGREE HEART BLOCK AND BRADICARDIA PER DR. LO THIS RN SPOKE TO DR. DANAY ROSA HELD THIS AM, PT ATE BREAKFAST FINISHED APPROX 0845 DANAY PLANS TO SEE PT TODAY
--- NOTE | 2022-06-08 11:06 | NUR ---
Met with SONDRA and his this morning prior to his transfer to PCU. They report that Dr. Stein was in to see him this morning and that he will not be getting a pacemaker at this time. Soraida states he is likely going to have a stress test. Continued the POLST discussion from yesterday with SONDRA and Soraida. Questions answered. SONDRA chooses to be a DNR with limited interventions. POLST signed by SONDRA. Spoke with Dr. Bradford. POLST placed on chart, MD will plan to sign. Once POLST is signed it will be processed and sent to medical records, OR POLST registry, Dr. Alford's pt's PCP office and an extra copy to the chart. SONDRA wished a happy birthday as he turned 82 today! PC to continue to follow.
--- NOTE | 2022-06-08 18:02 | NUR ---
PT TRANSFERRED TO UNIT. A&OX4, FORGETFUL AT TIMES. PLEASANT AND COOPERATIVE WITH CARE. PT TRANSFERRED ON RA, WHICH IS PT'S BASELINE. PT SOB UPON EXERTION, INTERMITTENT DURING REST. PT COMPLAINED OF DIZZINESS AT REST, 1L O2 ADMINISTERED AND DIZZINESS RESOLVED, PT STILL ON 1L. LUNG SOUNDS CLEAR, AND DIMINISHED AT BASES. HR SINUS MORE 30'S-50'S, WEINKI VAZQUEZ PER TELE & DR. ROBERTSON. PER DR. ROBERTSON, WALKED PT IN HALLS, 6L O2 ADMINISTERED TO MAINTAIN O2 >90%, PT'S HR DURING WALK LOW 60'S, NON-SKID SOCKS IN PLACE DURING WALK, AID FOLLOWING BEHIND WITH WHEELCHAIR FOR SAFETY, PT HAD BOWEL MOVEMENT THIS SHIFT. CONDOM CATH IN PLACE. BLANCHABLE/RED AREA ON COCCYS, MEPILEX IN PLACE. BLE SLIGHTLY SWOLLEN, DRY AND FLAKY. CPAP AT NIGHT. D-DIMER CAME BACK ELEVATED, CHEST CT PERFORMED CAME BACK NEG FOR PULMONARY EMBOLISM. THIS NURSE PLACED 20G IV BEFORE PT HAD INJECTION FOR STRESS TEST TMR. PT HAD PICTURE DONE WELL, STRESS TEST SCHEDULED FOR TMR MORNING. PT NPO AT MIDNIGHT, NO CAFFEINE PAST 7PM TONIGHT. ORDER BREAKFAST FOR PT BUT HOLD UNTIL AFTER PROCEDURE. PT RESTING IN BED CONVERSING WITH , TV ON. CALL LIGHT WITHIN REACH.
--- NOTE | 2022-06-08 18:22 | NUR ---
PATIENT AMBULATING HALLS WITH THIS RN AND STUDENT RN. PATIENT HR DID NOT EXCEED 63 BEATS PER MINUTE. O2 TITRATED UP TO 6L FOR PATIENT TO MAINTAIN SATURATIONS. DENIES CHEST PAIN/PRESSURE UPON WALKING. COMPLAINS OF SOB AND FEELING WEAK. PATIENT THEN WALKED AGAIN AND NO CHANGES. HR DID NOT EXCEED LOW 60'S. PATIENT NEEDING TO TAKE BREAKS DURING ACTIVITY AND REST IN SITTING POSITION. THIS RN HAS REVIEWED AND AGREES WITH ALL DREDGE MASTER DOCUMENTATION.
[2022-06-09] VITALS (7 sets, daily range): BP systolic 105–140; BP diastolic 46–66
[2022-06-09 04:20] LABS: Hematocrit 29.9 % (37.0-53.0); Hemoglobin 9.1 g/dL (13.5-17.5)
[2022-06-09 04:47] LABS: Bun/Creatinine Ratio 24.4 (12.0-20.0); Calcium, Blood 8.5 mg/dL (8.5-10.1); Creatinine, Blood 1.8 mg/dL (0.60-1.20); Magnesium, Blood 1.9 mg/dL (1.6-2.4); Potassium, Blood 4.6 mmol/L (3.5-5.5)
--- NOTE | 2022-06-09 05:22 | NUR ---
END OF SHIFT PT BRADYCARDIC LOW 26 BUT SUSTAINING IN THE 30'S AND 40'S, PT DENIES SOB OR CP, VSS OTHERWISE, 1LPM NC MOSTLY FOR PT COMFORT HE IS EXTREMELY ANXIOUS REGARDING POSSILE UPCOMING PROCEDURE WELL WATCHING HIS HR ON THE MONITOR, PT TREATED FOR GENERALIZED PAIN X'S 2 WITH PRNS AND EVENTUALLY DID GET SOME REST
--- NOTE | 2022-06-09 09:51 | NUR ---
POLST form signed by Dr. Bradford this morning. POLST form copies sent to medical records, OR POLST registry, Dr. Aparicio office per pt's request and a copy to pt's chart. Pt is awake, eating breakfast this morning. States he is getting the second part of the heart center testing done today. There is a possibility of a pacemaker placement. No requests at this time. Pt's Soraida is at his bedside this morning.
--- NOTE | 2022-06-09 10:48 | NUR ---
AM NOTE: PATIENT ALERT AND ORIENTED X4. KASHIA. PERRLA. AT TIMES BLURRY VISION. UP WITH 2 PERSON ASSIST AND FWW. SOB UPON WALKING AND MOVING IN BED. TELE SHOWING 2 DEGREE TYPE 1 HEART BLOCK WITH HR IN THE 40'S. LOWEST HR DOWN TO 23 THIS AM BUT DID NOT SUSTAIN. PATIENT DENIES BRADYCARDIA SYMPTOMS. BP STABLE. PPP. MINIMAL EDEMA TO LEFT LOWER EXTREMITY. LOVENOX GIVEN THIS AM. 2ND PART OF STRESS TEST COMPLETED. AT BEDSIDE. ON 1-2L NASAL CANNULA SATING HIGH 90'S. SOB WHEN MOVING OR UP OUT OF BED. DENIES SOB AT REST. LUNGS SOUNDING CLEAR WITH FINE CRACKLES IN BASES. IV LASIX GIVEN THIS AM. DENIES ABDOMINAL PAIN/NAUSEA. EATING WNL POST STRESS TEST. CONDOM CATH IN PLACE DRAINING YELLOW URINE. DENIES PAIN WITH URINATION. BOWEL MOVEMENT YESTERDAY DAY SHIFT. PLAN FOR BED BATH THIS SHIFT. DR. LO AND DR. GENEVA RUBIN IN THIS AM. ORDERS FOR THIS RN TO PLACE: BLOOD SUGAR CHECK AT 0230 ON 06/10. NURSE NOTIFY ORDER IN PLACE. REMAINS AT BEDSIDE. CALL LIGHT IN REACH.
--- NOTE | 2022-06-09 18:05 | NUR ---
SHIFT SUMMARY: NO ACUTE CHANGES. DR. JON BY TO SEE PATIENT. PLAN FOR PACER 06/10 AT 0900. HIBICLENS BATH TO BILATERAL AXILLA, NECK AND CHEST TO BE PREFORMED TONIGHT AND TOMORROW MORNING. MRSA SWAB COLLECTED FROM [facility] AND SLIGHT BREAKDOWN ON BOTTOM AND SENT TO LAB. NPO AT MIDNIGHT. REMAINS ON 1-2L NASAL CANNULA SATING MID 90'S. TELE CONTINUES TO SHOW 2ND DEGREE TYPE 1 WITH HR 40'S. CONTINUES TO DENY BRADYCARDIC SYMPTOMS. Q2 TURNING. ACHS BLOOD SUGARS. PLAN FOR BLOOD SUGAR TO BE TAKEN AT 0230. CC IN PLACE AND VOIDING WNL.
[2022-06-10] VITALS (12 sets, daily range): BP systolic 101–144; BP diastolic 39–91
[2022-06-10 04:46] LABS: BASOPHILS ABSOLUTE AUTO 0.04 K/mm3 (0.00-0.23); BASOPHILS PERCENT AUTO 1 % (0-2); EOSINOPHILS ABSOLUTE AUTO 0.65 K/mm3 (0.00-0.68); EOSINOPHILS PERCENT AUTO 9 % (0-6); Hematocrit 30.3 % (37.0-53.0); IMMATURE GRAN ABSOLUTE AUTO 0.02 K/mm3 (0.00-0.10); IMMATURE GRAN PERCENT AUTO 0 % (0-1); LYMPHOCYTES ABSOLUTE AUTO 0.97 K/mm3 (0.84-5.20); LYMPHOCYTES PERCENT AUTO 13 % (21-46); MONOCYTES ABSOLUTE AUTO 0.66 K/mm3 (0.16-1.47); MONOCYTES PERCENT AUTO 9 % (4-13); Mean Corpuscular HGB 23.6 pg (26.0-34.0); Mean Corpuscular HGB Conc 29.7 g/dL (31.5-36.5); Mean Corpuscular Volume 80 fL (80-100); Mean Platelet Volume 10.3 fL (9.1-12.4); NEUTROPHILS ABSOLUTE AUTO 4.96 K/mm3 (1.96-9.15); NEUTROPHILS PERCENT AUTO 68 % (41-73); Platelet Count 271 K/mm3 (150-400); RDW Standard Deviation 46.3 fL (35.1-46.3); Red Blood Cell Count 3.81 M/mm3 (4.30-5.90)
[2022-06-10 05:05] LABS: Albumin, Blood 2.3 g/dL (3.4-5.0); Albumin/Globulin Ratio 0.6 (0.8-1.8); Bilirubin, Total 0.2 mg/dL (0.1-1.0); Bun/Creatinine Ratio 25.1 (12.0-20.0); Creatinine, Blood 1.99 mg/dL (0.60-1.20); Potassium, Blood 4.5 mmol/L (3.5-5.5); Total Protein, Blood 6.3 g/dL (6.4-8.2)
--- NOTE | 2022-06-10 05:46 | NUR ---
END OF SHIFT PT RESTED WELL, HR 30'S-40'S, NPO SINCE MIDNIGHT FOR PM TODAY, 2LPM NC, GOOE UO, AFEBRILE, VSS WITH THE EXCEPTION OF THE LOW HR, FSBS OVERNIGHT WAS 55, PT ASYMPTOMATIC AND RECIEVED 1 AMP D50, RECHECK WAS 150
--- NOTE | 2022-06-10 10:23 | NUR ---
AM NOTE: PATIENT ALERT AND ORIENTED X4. HARD OF HEARING. DENTURES IN PLACE. PERRLA. CHRONIC NUMBNESS/TINGLING TO HANDS AND BLE. ON 1-2L NASAL CANNULA SATING HIGH 90'S. SOB WITH EXERTION. LUNGS SOUNDING CLEAR IN UPPER LOBES AND FINE CRACKLES HEARD IN BASES. DENIES COUGH. 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 HR 40-50'S. PLAN FOR PACER THIS AM. CHG BATH GIVEN. BP STABLE. PPP. DENIES ABDOMINAL PAIN/NAUSEA. NPO THIS AM FOR PACER. CONDOM CATH IN PLACE DRAINING CLEAR YELLOW URINE. BLOOD SUGAR THIS AM READING 44. CONTINUOUS LINTER DRIER OPERATOR TO CALL DR. LO. ORDERS FOR 1 AMP D50. D50 GIVEN AND UPON RECHECK BLOOD SUGAR READING 127. 30 MIN LATER PRIOR TO LENS COATING TECHNICIAN BLOOD SUGAR READING 108. JOSHUA FROM [facility] UPDATED ON BLOOD SUGAR. IV VANCO INFUSED. FITO AT BEDSIDE.
--- NOTE | 2022-06-10 13:43 | NUR ---
PATIENT BACK TO PCU 05 POST PACER. PACER TO LEFT CHEST. SITE SOFT/NONTENDER. DRESSING C/D/I. ICE PACK APPLIED AND ARM SLING IN PLACE. PATIENT AND EDUCATED ON POST PACER SHOULDER PRECAUTIONS. POST VITAL SIGNS IN PROGRESS. BLOOD SUGAR 85. 2ND RN PLACED CALL TO DR. MATHEW. D5 ORDERS IN [address]ACE AND INFUSING 50 ML/HR. WILL CONTINUE TO MONITOR BLOOD SUGARS AND KEEP DR. MATHEW UPDATED. PATIENT EATING LUNCH AT THIS TIME. POST EKG COMPLETED AND IN CHART. ORDERS FOR CHEST XRAY AT 1600.
--- NOTE | 2022-06-10 16:06 | NUR ---
PATIENT TAKEN TO XRAY AT THIS TIME
--- NOTE | 2022-06-10 16:47 | NUR ---
DR. MATHEW BY TO SEE PATIENT. ORDERS TO DC D5. ORDERS IN PLACE. BLOOD SUGARS STABLE IN 140'S. [facility] BLOOD SUGAR CHECKS. POST VITALS COMPLETE. PACER SITE WNL. SLING AND ICE PACK IN PLACE.
--- NOTE | 2022-06-10 17:57 | NUR ---
SHIFT SUMMARY: NO ACUTE CHANGES, SEE PREVIOUS NOTES. REMAINS ON 1-2L NASAL CANNULA. TELE SHOWING PACED AT 55. LEFT CHEST SITE WNL, ARM SLING AND ICE PACK IN PLACE. PATIENT EATING DINNER AT THIS TIME WITH RIGHT HAND. CONDOM CATH IN PLACE. Q2 TURNING. ACHS BLOOD SUGARS. PATIENT DENIES PAIN.
[2022-06-11] VITALS: BP 133/67
[2022-06-11 02:00] VITALS: BP 147/65
[2022-06-11 04:54] LABS: BASOPHILS ABSOLUTE AUTO 0.03 K/mm3 (0.00-0.23); BASOPHILS PERCENT AUTO 0 % (0-2); EOSINOPHILS ABSOLUTE AUTO 0.48 K/mm3 (0.00-0.68); EOSINOPHILS PERCENT AUTO 7 % (0-6); Hematocrit 30.6 % (37.0-53.0); Hemoglobin 9.3 g/dL (13.5-17.5); IMMATURE GRAN ABSOLUTE AUTO 0.03 K/mm3 (0.00-0.10); IMMATURE GRAN PERCENT AUTO 0 % (0-1); LYMPHOCYTES ABSOLUTE AUTO 0.85 K/mm3 (0.84-5.20); LYMPHOCYTES PERCENT AUTO 12 % (21-46); MONOCYTES ABSOLUTE AUTO 0.67 K/mm3 (0.16-1.47); MONOCYTES PERCENT AUTO 10 % (4-13); Mean Corpuscular HGB 23.8 pg (26.0-34.0); Mean Corpuscular HGB Conc 30.4 g/dL (31.5-36.5); Mean Corpuscular Volume 79 fL (80-100); NEUTROPHILS ABSOLUTE AUTO 4.89 K/mm3 (1.96-9.15); NEUTROPHILS PERCENT AUTO 71 % (41-73); Platelet Count 277 K/mm3 (150-400); RDW Coefficient Variation 15.9 % (11.7-14.2); RDW Standard Deviation 45.3 fL (35.1-46.3); White Blood Cell Count 6.95 K/mm3 (4.00-11.30)
[2022-06-11 05:20] LABS: Bun/Creatinine Ratio 27.3 (12.0-20.0); Calcium, Blood 8.1 mg/dL (8.5-10.1); Creatinine, Blood 1.94 mg/dL (0.60-1.20); Magnesium, Blood 2.2 mg/dL (1.6-2.4); Potassium, Blood 4.9 mmol/L (3.5-5.5)
--- NOTE | 2022-06-11 05:22 | NUR ---
END OF SHIFT SLIGHT BRUISING TO LEFT CW PM SITE, DRESSING IN PLACE, PT COMPLIANT WITH SLING AND RESTRICTIONS TO LEFT ARM, TREATED FOR PAIN X'S 2, VSS, NOTABLE SIGNS OF ASPIRATION WHEN DRINKING LIQUIDS THAT WAS NOT APPARENT PRIOR TO THIS SHIFT, PT STATES "IT HAPPENS SOMETIMES WHEN I DRINK TOO FAST AND I KNOW BETTER", COULD BENEFIT FROM A SWALLOW EVAL PRIOIR TO D/C?
--- NOTE | 2022-06-11 07:15 | NUR ---
ASSUMED CARE: PT DUAL PACED ON TELE AT 55. SLING IN PLACE. SITE TO LEFT CHEST WITH SMALL BRUISING NOTED. NC IN PLACE FOR COMFORT. CBG IN 60S. REFURBISH TECHNICIAN PROVIDED WITH JUICE. NO FURTHER NEEDS AT THIS TIME.
[2022-06-11 07:35] VITALS: BP 135/98
--- NOTE | 2022-06-11 09:40 | NUR ---
HEART CENTER STAFF AT BEDSIDE PERFORMING PACE MAKER INTERROGATION. NO ACUTE NEEDS AT THIS TIME.
--- NOTE | 2022-06-11 10:34 | NUR ---
speech therapy at bedside at this time.
[2022-06-11] MEDS ORDERED: TORSE20 PO (11:14)
[2022-06-11] MEDS ORDERED: BASAGLAR K100 UNIT/1 SC (11:16)
--- NOTE | 2022-06-11 11:52 | NUR ---
RT ATTEMPTED HOME O2 EVALUATION AND PT REQUIRED 2 ASSIST TO GET TO STANDING AT SIDE OF BED. STANDING FOR SHORT PERIOD OF TIME AND STATED HE NEEDED TO SIT BECAUSE HE FELT VERY WEAK. PT'S O2 SATURATION DROPPED INTO LOW 80S AND WAS ONLY STANDING. RT INCREASED O2 TO 3L AND PT RECOVERED AFTER A FEW MINUTES. CALL TO DR ROSARIO WHO STATED HE WAS GOING TO ORDER THERAPY CONSULT, DISCUSS WITH DR LO AND LIKELY WOULD NOT DISCHARGE. FEDERAL LAW CLERK AWARE
[2022-06-11 13:29] VITALS: BP 138/77
[2022-06-11 15:50] VITALS: BP 150/61
--- NOTE | 2022-06-11 17:24 | NUR ---
SHIFT SUMMARY: PT CONTINUES TO BE DUAL CHAMBER PACED ON TELE. SLING IN PLACE. 2L O2 TO MAINTAIN SATURATION GREATER THAN 92%. PT VERY WEAK ON EXERTION, REQUIRING 2 ASSIST AND GAIT BELT TO GET TO A STANDING POSITION. VERY WEAK AFTER STANDING. AWAITING PHYSICAL THERAPY CONSULT. DR LO AWARE OF PT STATUS AT THIS TIME.
[2022-06-12 04:11] LABS: Bun/Creatinine Ratio 27.2 (12.0-20.0); Calcium, Blood 8.5 mg/dL (8.5-10.1); Creatinine, Blood 1.91 mg/dL (0.60-1.20); Potassium, Blood 5.1 mmol/L (3.5-5.5)
--- NOTE | 2022-06-12 04:38 | NUR ---
END OF SHIFT NO ISSUES OVERNIGHT, VSS, GOOD UO
[2022-06-12 07:42] VITALS: BP 108/92
[2022-06-12 11:35] VITALS: BP 99/59
[2022-06-12] MEDS ORDERED: HUMALOG100 UNIT/1 SC (13:58)
[2022-06-12] MEDS ORDERED: XARELTO15 MG PO (13:59)
[2022-06-12] MEDS ORDERED: Percocet 5-3251 EACH PO (14:00)
[2022-06-12 14:18] LABS: SARS-Cov-2 (COVID-19) PCR, MMC NEGATIVE (NEGATIVE)
--- NOTE | 2022-06-12 15:38 | NUR ---
REPORT RECIEVED AT 0700. GREETED THE PATIENT AND PERFORMED VITAL SIGNS AND ASSESSMENT. COMPLETED MEDICATION PASS AT 0820. EDUCATION ON CARDIAC AND LEFT SIDED PAIN AND ITS IMPLICATIONS WITH OR. DISCUSSED THE PACEMAKER. MANAGED PATIENTS PAIN.
--- NOTE | 2022-06-12 15:56 | NUR ---
Pt was helped to get ready for discharge to [facility]. Assisted with personal care after removal of condom catheter. Redness noted on shaft of penis. Pt was quite hesitant to have it removed because of his urinary incontinence, and said that he and his had decided to use them at home in the future; it was going to be replaced for his transport to [facility] after pericare. However, with the generalized redness and a pin point sized sore noted on the underside of the shaft, it was discussed with patient and decided to leave it off to prevent any skin damage and allow the skin to return to normal. Pt was agreeable to this. Assisted with attends placement and putting his clothes on. Pt was taken out with wheelchair transport with 2 l/min of oxygen. I assisted the EMT to hook the patient up to oxygen in the tank of the ambulance.
== END 2022-06-12 15:39 | disposition home or self-care (01) | DRG 242 ==
LOC: ER 17:08 → MEDS 20:33 → PCU 06-08 11:01
PROVIDERS: Emergency Medicine; Family Medicine; Nurse Practitioner Acute Care; ADMIT Internal Medicine
PROC: 5A09357 Assistance with Respiratory Ventilation, Less than 24 Consecutive Hours, Continuous Positive Airway Pressure (ICD-10-PCS; principal; 2022-06-07)
PROC: 0JH606Z Insertion of Pacemaker, Dual Chamber into Chest Subcutaneous Tissue and Fascia, Open Approach (ICD-10-PCS; 2022-06-10)
PROC: 02H63JZ Insertion of Pacemaker Lead into Right Atrium, Percutaneous Approach (ICD-10-PCS; 2022-06-10)
PROC: 02HK3JZ Insertion of Pacemaker Lead into Right Ventricle, Percutaneous Approach (ICD-10-PCS; 2022-06-10)
DX: I11.0 Hypertensive heart disease with heart failure (principal); I50.21 Acute systolic (congestive) heart failure; J96.01 Acute respiratory failure with hypoxia; N17.9 Acute kidney failure, unspecified; I45.89 Other specified conduction disorders; I44.1 Atrioventricular block, second degree; I42.0 Dilated cardiomyopathy; I49.5 Sick sinus syndrome; D64.9 Anemia, unspecified; Z66 Do not resuscitate; E78.5 Hyperlipidemia, unspecified; I25.10 Atherosclerotic heart disease of native coronary artery without angina pectoris; G47.00 Insomnia, unspecified; G47.33 Obstructive sleep apnea (adult) (pediatric); I48.0 Paroxysmal atrial fibrillation; E11.649 Type 2 diabetes mellitus with hypoglycemia without coma; E11.40 Type 2 diabetes mellitus with diabetic neuropathy, unspecified; F32.A Depression, unspecified; I35.0 Nonrheumatic aortic (valve) stenosis; Z20.822 Contact with and (suspected) exposure to COVID-19; Z79.01 Long term (current) use of anticoagulants; Z79.4 Long term (current) use of insulin; Z79.02 Long term (current) use of antithrombotics/antiplatelets; Z99.81 Dependence on supplemental oxygen; Z88.2 Allergy status to sulfonamides; Z88.1 Allergy status to other antibiotic agents; Z91.09 Other allergy status, other than to drugs and biological substances; Z86.73 Personal history of transient ischemic attack (TIA), and cerebral infarction without residual deficits; Z90.49 Acquired absence of other specified parts of digestive tract; Z98.52 Vasectomy status; Z98.890 Other specified postprocedural states; Z87.891 Personal history of nicotine dependence; Z91.81 History of falling; Z85.038 Personal history of other malignant neoplasm of large intestine
CPT/HCPCS: 33208; 36415; 71045; 71046; 71260; 78452; 80048; 80053; 81001; 82803; 82947; 83036; 83735; 83880; 84443; 84484; 85014; 85018; 85025; 85379; 87081; 92610; 93005; 93010; 93017; 93306; 94660; 94760; 94761; 94762; 97162; 97530; 99152; 99153; 99285-25; A9270; A9500; C1785; C1894; C1898; J0280; J1644; J1650; J1815; J1940; J2250; J2785; J3010; J3370; J3475; J7040; J7060; J7070; Q9967; U0004

== ENCOUNTER 2022-07-10 20:22 | Inpatient (IN) | payer MEDICARE ==
[~2022-07-10] VITALS: Ht 177.8 cm; Wt 96.4 kg
[~2022-07-10 20:22] MED LIST changes: +HUMALOG100 UNIT/1 SC; +HYDPAM50 PO; +TORSE20 PO; +XARELTO15 MG PO
[2022-07-10 20:51] LABS: BASOPHILS ABSOLUTE AUTO 0.04 K/mm3 (0.00-0.23); BASOPHILS PERCENT AUTO 0 % (0-2); EOSINOPHILS ABSOLUTE AUTO 0.33 K/mm3 (0.00-0.68); EOSINOPHILS PERCENT AUTO 2 % (0-6); Hematocrit 27.6 % (37.0-53.0); Hemoglobin 8.3 g/dL (13.5-17.5); IMMATURE GRAN ABSOLUTE AUTO 0.06 K/mm3 (0.00-0.10); IMMATURE GRAN PERCENT AUTO 0 % (0-1); LYMPHOCYTES ABSOLUTE AUTO 0.66 K/mm3 (0.84-5.20); LYMPHOCYTES PERCENT AUTO 5 % (21-46); MONOCYTES ABSOLUTE AUTO 0.67 K/mm3 (0.16-1.47); MONOCYTES PERCENT AUTO 5 % (4-13); Mean Corpuscular HGB 23.7 pg (26.0-34.0); Mean Corpuscular HGB Conc 30.1 g/dL (31.5-36.5); Mean Corpuscular Volume 79 fL (80-100); Mean Platelet Volume 10.2 fL (9.1-12.4); NEUTROPHILS ABSOLUTE AUTO 13.04 K/mm3 (1.96-9.15); NEUTROPHILS PERCENT AUTO 88 % (41-73); Platelet Count 255 K/mm3 (150-400); RDW Standard Deviation 45.3 fL (35.1-46.3)
[2022-07-10 21:13] LABS: International Normalized Ratio 1.26; Prothrombin Time Results 13.1 Sec (9.7-11.5)
[2022-07-10 21:29] LABS: Source, Urine Clean Catch
[2022-07-10 21:32] LABS: Albumin, Blood 2.7 g/dL (3.4-5.0); Albumin/Globulin Ratio 0.5 (0.8-1.8); Bilirubin, Total 0.4 mg/dL (0.1-1.0); Bun/Creatinine Ratio 29.7 (12.0-20.0); Calcium, Blood 8.8 mg/dL (8.5-10.1); Creatinine, Blood 1.65 mg/dL (0.60-1.20); Potassium, Blood 4.7 mmol/L (3.5-5.5); Thyroid Stimulating Hormone 1.25 uIU/mL (0.360-4.800); Total Protein, Blood 7.7 g/dL (6.4-8.2)
[2022-07-10 21:32] LABS: Appearance, Urine Clear (Clear); Bilirubin, Urine Neg (Neg); Blood, Urine 3+ (Neg); Color, Urine Yellow (P-Yellow); Glucose Qualitative, Urine 4+ (Neg); Ketones, Urine Neg (Neg); Leukocyte Esterase, Urine Neg (Neg); Nitrite, Urine Neg (Neg); Protein, Urine Neg (Neg); Specific Gravity, Urine 1.015 (1.003-1.022); Urobilinogen, Urine NORM (Normal)
[2022-07-10 21:43] LABS: Bacteria Few /hpf; Squamous Epithelial Cells Rare /hpf (Few); White Blood Cells, Urine 0-2 /hpf (0-5)
[2022-07-10 23:32] LABS: Base Excess Venous 3.8 mmol/L; Bicarbonate Venous 27.4 mmol/L (24.0-30.0); PCO2 Venous 51.9 mmHg (38-42); pH Blood Venous 7.36 (7.34-7.37)
[2022-07-10 23:38] LABS: U Amphetamine Screen Not Detected; U Barbituate Screen Not Detected; U Benzodiazapine Screen Not Detected; U Buprenorphine Screen Not Detected; U Cannabinoids Screen Not Detected; U Cocaine Screen Not Detected; U Methadone Screen Not Detected; U Methamphetamine Screen Not Detected; U Opiates Screen Not Detected; U Oxycodone Screen DETECTED; U Phencyclidine Screen Not Detected; U Propoxyphene Screen Not Detected
[2022-07-11 00:18] VITALS: BP 99/52
--- NOTE | 2022-07-11 01:32 | NUR ---
ADMISSION NOTE PATIENT ARRIVED TO PCU 20 VIA STRETCHER, SLIDE TRANSFER PERFORMED DUE TO PATIENT WEAKNESS. HE IS ALERT AND ORIENTED X3, ABLE TO ANSWER NAME/, PLACE, AND PERSON. PATIENT UNSURE OF DATE AND CURRENT SITUATION. PATIENT DENIES HAVING ANY PAIN OR SHORTNESS OF BREATH. SKIN TEARS AND BRUSING NOTED ON PATIENT, PHOTOS ON CHART. SPOKE WITH PATIENT'S IN ORDER TO OBTAIN MED REC AND HISTORY.
[2022-07-11 03:32] VITALS: BP 108/54
[2022-07-11 05:28] LABS: BASOPHILS ABSOLUTE AUTO 0.03 K/mm3 (0.00-0.23); BASOPHILS PERCENT AUTO 0 % (0-2); EOSINOPHILS ABSOLUTE AUTO 0.01 K/mm3 (0.00-0.68); EOSINOPHILS PERCENT AUTO 0 % (0-6); Hematocrit 24.6 % (37.0-53.0); Hemoglobin 7.5 g/dL (13.5-17.5); IMMATURE GRAN PERCENT AUTO 1 % (0-1); LYMPHOCYTES ABSOLUTE AUTO 0.87 K/mm3 (0.84-5.20); LYMPHOCYTES PERCENT AUTO 5 % (21-46); MONOCYTES ABSOLUTE AUTO 0.84 K/mm3 (0.16-1.47); MONOCYTES PERCENT AUTO 5 % (4-13); Mean Corpuscular HGB 23.8 pg (26.0-34.0); Mean Corpuscular HGB Conc 30.5 g/dL (31.5-36.5); Mean Corpuscular Volume 78 fL (80-100); Mean Platelet Volume 10.6 fL (9.1-12.4); NEUTROPHILS PERCENT AUTO 90 % (41-73); Platelet Count 244 K/mm3 (150-400); RDW Coefficient Variation 15.9 % (11.7-14.2); Red Blood Cell Count 3.15 M/mm3 (4.30-5.90); White Blood Cell Count 17.75 K/mm3 (4.00-11.30)
[2022-07-11 05:57] LABS: Albumin, Blood 2.2 g/dL (3.4-5.0); Albumin/Globulin Ratio 0.5 (0.8-1.8); Bilirubin, Total 0.5 mg/dL (0.1-1.0); Bun/Creatinine Ratio 31.4 (12.0-20.0); Calcium, Blood 8.5 mg/dL (8.5-10.1); Creatinine, Blood 1.69 mg/dL (0.60-1.20); Globulin, Blood 4.4 g/dL (2.2-4.0); Potassium, Blood 4.8 mmol/L (3.5-5.5); Total Protein, Blood 6.6 g/dL (6.4-8.2)
--- NOTE | 2022-07-11 06:02 | NUR ---
SHIFT SUMMARY PATIENT ALERT AND ORIENTED X3. REMAINED ON BEDREST OVERNIGHT DUE TO WEAKNESS AND PATIENT BEING TIRED. PATIENT ON HOME O2 OF 1 LITER WITH SPO2 >90%. VITAL SIGNS STABLE WITH HEART BEING 100% PACED. PATIENT DENIES CHEST PAIN/SHORTNESS OF BREATH. PATIENT WAS HAVING DIFFICULTY USING A URINAL, CONDOM CATHETER PLACED. NO ACUTE ISSUES NOTED SINCE ADMIT. WILL CONTINUE TO MONITOR. CALL LIGHT WITHIN REACH.
[2022-07-11 07:29] VITALS: BP 124/84
--- NOTE | 2022-07-11 09:36 | NUR ---
AM NOTES: PT WAS MORE ALERT AND CONVERSIVE KNOWS WHERE HE'S AT CAN STATE NAME AND , UNSURE OF DATE. PT REMEMBERED WHAT HAPPENED AT HOME PRIOR TO COMING TO THE HOSPITAL. GOT UP IN THE BEDSIDE COMMODE VIA WALKER WITH 1PA PT HAD A BOWEL MOVEMENT, BED BATH PROVIDED WELL. PT HAS SOME BLE WEAKNESS ABLE TO TOLERATE TAKING SMALL STEPS GETS A LITTLE TIRED AND SOB UPON GETTING BACK TO BED REMAINS ON 1L OF O2 SATS KEPT ABOVE 90%. SBP 120'S, HRR PACED AT 60'S, DENIES CHEST PAIN/PRESSURE. AFEBRILE. NO OTHER ISSUES THIS MORNING SPEECH THERAPIST TO COME SEE PT IN A LITTLE BIT. PT/OT WELL. PACEMAKER SITE ON LEFT ARM LOOKS INTACT NO REDNESS NOTED AROUND THE SITE. CONDOME CATH IN PLACE PER PT'S REQUESTS, VOIDING YELLOW URINE. WILL CONTINUE TO MONITOR
[2022-07-11 17:44] VITALS: BP 151/66
--- NOTE | 2022-07-11 18:10 | NUR ---
SHIFT SUMMARY: NO ACUTE CHANGES T/O THE SHIFT. PT CONTINUES TO REMAIN ALERT AND ORIENTED X3-4. ABLE TO ANSWER QUESTIONS AND MAKE NEEDS KNOWN. SBP 150'S WITH HR IN THE 70'S FULLY PACED. PT DENIES ANY CHEST PAIN, PRESSURE OR SOB. PT ABLE TO SIT ON THE SIDE OF THE BED FOR DINNER. PT WORKED WITH SPEECH THERAPY TODAY AND WAS PLACED ON A REGULAR DIET. PT WORKED WITH PHYSICAL THERAPY AND OCCUPATIONAL THERAPY WELL. PT ABLE TO USE THE BEDSIDE COMMODE WITH 1-2 PERSON ASSIST AND USES THE URINAL WITH HELP. PATIENT AWAITING TRANSFER TO THE MEDICAL FLOOR. SPO2 REMAINS >95% ON 2L NC. WILL CONTINUE TO MONITOR AND GIVE REPORT TO ONCOMING NOC SHIFT RN.
[2022-07-12 03:56] VITALS: BP 164/76
[2022-07-12 05:34] LABS: Hematocrit 23.8 % (37.0-53.0); Hemoglobin 7.4 g/dL (13.5-17.5); Mean Corpuscular HGB 23.9 pg (26.0-34.0); Mean Corpuscular HGB Conc 31.1 g/dL (31.5-36.5); Mean Corpuscular Volume 77 fL (80-100); Mean Platelet Volume 9.9 fL (9.1-12.4); Platelet Count 224 K/mm3 (150-400); RDW Coefficient Variation 16.1 % (11.7-14.2); Red Blood Cell Count 3.09 M/mm3 (4.30-5.90); White Blood Cell Count 9.91 K/mm3 (4.00-11.30)
[2022-07-12 05:58] LABS: Albumin, Blood 2.5 g/dL (3.4-5.0); Anion Gap 6 mmol/L (6-16); Blood Urea Nitrogen 49 mg/dL (8-24); Bun/Creatinine Ratio 31.4 (12.0-20.0); CO2, Blood 28 mmol/L (21-32); Calcium, Blood 9.1 mg/dL (8.5-10.1); Chloride, Blood 105 mmol/L (98-108); Creatinine, Blood 1.56 mg/dL (0.60-1.20); Glomerular Filtration Rate 45 (60-); Glucose, Blood 165 mg/dL (70-99); Phosphorus, Blood 2.9 mg/dL (2.5-4.9); Potassium, Blood 4.2 mmol/L (3.5-5.5); Sodium, Blood 139 mmol/L (136-145)
--- NOTE | 2022-07-12 06:37 | NUR ---
SHIFT SUMMARY REPORT FROM EAN Galo RN FROM PCU- PT BROUGHT TO ROOM 357 VIA GURNEY- PT ON 2L O2 VIA NC, TURNED DOWN TO 1L D/T PT SATS AT 99- WILL MONITOR- PT TOOK SCHEDULED MEDS WITHOUT PROBLEMS- PT ATTEMPTED TO WEAR CPAP WITH OXYGEN- PT TOLERATED IT FOR 1 HOUR- PT REPORTS THE FACILITY'S MACHINE ARE UNCOMFORTABLE- NOTIFIED RT- RETURNED PT TO 1L O2 VIA NC -PT ON PRODUCTION TECH - WILL MONITOR FOR LOW SATS- PT SATS STAYED ABOVE 90 WITH 1L O2 NC- PT CALLS APPROPRIATE- PT USES FEMALE URINAL- ENCOURAGED PT TO CALL FOR ASSISTANCE- BED LOW POSITION, CALL LIGHT WITHIN REACH
[2022-07-12 07:20] VITALS: BP 169/70
[2022-07-12 09:12] VITALS: BP 170/59
[2022-07-12 14:22] VITALS: BP 128/66
--- NOTE | 2022-07-12 18:04 | NUR ---
CALLED DR BALTAZAR- PT ORTHOSTATIC VITALS WERE COMPLETED. VITALS WERE POSSITIVE, PT BECAME DIZZY AND WEAK, FEELING LIKE HE WAS GOING TO FAINT. AWARE. RECIEVED AN ORDER FOR 25G ALBUMIN IV NOW.
--- NOTE | 2022-07-12 19:58 | NUR ---
RECEIVED REPORT AND ASSUMED CARE OF PT. PT IS SITTING UP IN THE CHAIR AT BEDSIDE. IV TO LEFT WRIST PATENT, SALINE LOCKED AFTER COMPLETION OF ALBUMIN. PT REPORTS PAIN 9/10 AND DESCRIBES DIFFUSE "ALL OVER MY BODY". PT ASSISTED BACK TO BED, 2 PERSON ASSIST. CALL LIGHT IN REACH. PT REFUSES CPAP. WCTM UNTIL REPORT IS GIVEN TO DAY SHIFT RN.
[2022-07-12 19:59] VITALS: BP 112/53
--- NOTE | 2022-07-12 20:10 | NUR ---
SHIFT SUMMARY- BEDSIDE REPORT COMPLETED WITH NIGHT RN CRISTINA. PT SITTING UP IN THE CHAIR WITH HIS SPOUSE AT BEDSIDE. IV ALBUMIN STARTED AT SHIFT CHANGE. PT HAS A SMALL WOUND ON HIS LEFT GLUTE ABOUT THE SIZE OF HALF A DIME. PT HAD POSITIVE ORTHO VITALS THIS EVENING. NIGHT RN AWARE. PT WAS 98% ON 4L AT THE TIME OF SHIFT CHANGE, O2 TITRATED DOWN TO 1L, SATS MAINTAINING AT 92-94%. ALL PASSED ON TO NIGHT RN IN BEDSIDE REPORT. PT IN THE CHAIR, CALL LIGHT IN REACH NO S&S OF DISTRESS NOTED.
[2022-07-13] VITALS (7 sets, daily range): BP systolic 103–141; BP diastolic 47–78
--- NOTE | 2022-07-13 04:32 | NUR ---
SHIFT SUMMARY: PT IS ALERT AND ORIENTED TO SELF, FAMILY, PLACE, AND SITUATION. PT REPORTS BEING FORGETFUL AND STATES HE DOES NOT RECALL EVENTS FROM EARLIER IN THE SHIFT. IV TO LEFT WRIST PATENT. PT TAKES HIS PILLS WHOLE WITH WATER, UPRIGHT 90 DEGREES WITH PO INTAKE. PT IS ABLE TO MOVE HIMSELF IN BED, REQUIRING ASSISTANCE AT TIMES. 2-PERSON ASSIST FOR TRANSFERS. PT REQUIRES ASSISTANCE TO USE THE URINAL. HE TOLERATED PO INTAKE WELL THIS SHIFT. PT REPORTED DIFFICULTY GETTING COMFORTABLE IN THE BED. O2 VIA NC 1 LPM AT REST, REQUIRING 2 LPM AT TIMES OF EXERTION. PT DID HAVE ONE EPISODE OF NAUSEA AND DRY HEAVING WHICH RESOLVED AFTER PT REMOVED HIS BOTTOM DENTURE AND WAS GIVEN ZOFRAN. PT'S STATES THAT PT WAS RECENTLY DISCHARGED FROM A SNF AND HE PREFERS NOT TO RETURN. [facility], BUT HE HAS NOT RECEIVED SERVICES FROM THEM YET, EXCEPT FOR THE INITIAL INTAKE VISIT. PER THE CHART, PT WAS A ONE PERSON ASSIST WHEN HE DISCHARGED HOME FROM THE SNF AND USED 1 LPM VIA NC AT HOME, WELL HIS CPAP. PT STATES HE IS COMPLIANT WITH HIS CPAP AT HOME, BUT CANNOT TOLERATE THE HOSPITAL CPAP. PT HAS TURNED AND REPOSITIONED HIMSELF, AND REQUESTED ASSISTANCE, FREQUENTLY THIS SHIFT AND HAS SHOWED MINDFULNESS OF PROTECTING HIS SKIN. MEPILEX IN PLACE TO BUTTOCK. PT IS LYING IN BED WITH THE CALL LIGHT IN REACH. WCTM UNTIL REPORT IS GIVEN TO DAY SHIFT RN.
[2022-07-13 08:19] LABS: Hematocrit 23.5 % (37.0-53.0); Hemoglobin 7.3 g/dL (13.5-17.5); Mean Corpuscular HGB 23.9 pg (26.0-34.0); Mean Corpuscular HGB Conc 31.1 g/dL (31.5-36.5); Mean Corpuscular Volume 77 fL (80-100); Mean Platelet Volume 9.6 fL (9.1-12.4); Platelet Count 245 K/mm3 (150-400); RDW Standard Deviation 44.8 fL (35.1-46.3); Red Blood Cell Count 3.05 M/mm3 (4.30-5.90); White Blood Cell Count 9.54 K/mm3 (4.00-11.30)
[2022-07-13 08:43] LABS: Albumin, Blood 2.8 g/dL (3.4-5.0); Anion Gap 5 mmol/L (6-16); Blood Urea Nitrogen 46 mg/dL (8-24); Bun/Creatinine Ratio 28.4 (12.0-20.0); CO2, Blood 31 mmol/L (21-32); Chloride, Blood 103 mmol/L (98-108); Creatinine, Blood 1.62 mg/dL (0.60-1.20); Glomerular Filtration Rate 43 (60-); Glucose, Blood 155 mg/dL (70-99); Phosphorus, Blood 2.9 mg/dL (2.5-4.9); Potassium, Blood 4.4 mmol/L (3.5-5.5); Sodium, Blood 139 mmol/L (136-145)
--- NOTE | 2022-07-13 15:28 | NUR ---
Initial palliative care consult: SONDRA is an 82 year old gentleman who was admitted to [facility] on 07/10/22 with metabolic encephalopathy and increasing pain. SONDRA had been home from rehab 3 days prior to this admission. He was discharged to rehab from [facility] about one month ago. 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 SONDRA has a history of CHF, DM, SANTO with CPAP use, colon CA, TIA, HTN, HLD, chronic anemia and chronic back pain from a lumbar laminectory around 1979. SONDRA and his , Soraida who is a nurse, are present during the visit. SONDRA's biggest concern is his pain. He reports his pain currently is 7/10 down from "Off the charts" prior to receiving tylenol. He reports he hasn't been able to sleep due to the pain and he is tearful and anxious when talking about the pain. He reports "I don't want to live anymore if this is how my pain is going to be." He reports back pain, bilat leg pain and generalized body pain. His who manages his meds at home reports that he takes oxycodone 5 mg 1 - 2 times per day. Reviewed his home med list. He was also taking lyrica 100 mg BID. He is not currently on either of these medications. Soraida reports that SONDRA is able to pivot transfer but hasn't done much walking since prior to his admission back in May 2022. He is weak and c/o pain all over. Discussed goals of care. SONDRA reports that if his pain is managed that he would want to continue living. He reports that he really doesn't want to return to rehab as "They did nothing for me there." He is open to therapy. SONDRA had his initial [facility] intake visit just prior to being admitted to the [facility] this time. Discussed options for palliative programs in the community. Also discussed hospice as an option when the time is right for him. Both SONDRA and Soraida are interesting getting connected with the [facility]. POLST form was completed during last admission to [facility]. Soraida is requesting AD paperwork. Provided with a blank copy of an AD. Plan at this time is to adequately manage his symptoms, send a referral for the [facility] program. He would like to have [facility] for rehab at discharge. SONDRA would prefer to not have to return to the hosptial if possible. Spoke with Dr. Vazquez and updated her on pt's pain, lack of sleep and anxiety. Dr. Vazquez states she will review his chart/meds and put in orders. Updated nursing. Faxed a referral to [facility]. SONDRA and Soraida verbalized their agreement with the plan and were appreciative of the time and information. PC to continue to follow for symptom management and advanced care planning prn.
[2022-07-13 16:44] LABS: Hemoglobin 7.2 g/dL (13.5-17.5); Mean Corpuscular HGB 24.1 pg (26.0-34.0); Mean Corpuscular HGB Conc 31.3 g/dL (31.5-36.5); Mean Corpuscular Volume 77 fL (80-100); Mean Platelet Volume 9.7 fL (9.1-12.4); Platelet Count 242 K/mm3 (150-400); RDW Coefficient Variation 15.9 % (11.7-14.2); RDW Standard Deviation 44.9 fL (35.1-46.3); Red Blood Cell Count 2.99 M/mm3 (4.30-5.90); White Blood Cell Count 8.78 K/mm3 (4.00-11.30)
--- NOTE | 2022-07-13 18:30 | NUR ---
SHIFT SUMMARY: PATIENT A&OX3. PLEASANT AND COOPERATIVE c CARE. DENIES CP/PRESSURE, SOB, N/V. REPORTS GENERALIZED PAIN 5-10/10. MEDICATED X1 c TYLENOL AND X1 c PERCOCET. REPORTS GOOD RELIEF FROM PERCOCET PAIN DOWN TO 2/10. ON O2 1L VIA NC c SPO2 93-99%. LUNGS CLEAR/DIM T/O TO AUSCULTATION. PATIENT WORK c PT/OT MOBILITY TODAY. PER PT/OT PATIENT WOULD BENIFIT FROM ACUTE CARE SETTING 1-2 HRS OF DAILY THERAPY. POSITIVE FOR ORTHOSTHATIC HYPOTENSION. BP DROPED 30 POINTS WHEN STANDING UP. USES URINAL AT BEDSIDE. PALLIATIVE CARE NURSE CAME AND SAW PATIENT TODAY AND SPOKE TO PATIENT AND SPOUSE ABOUT PLAN OF CARE WITH PAIN MANGEMENT. PATIENT AND SPOUSE STATED UNDERSTANDING AND NO FURTHER QUESTIONS AT THIS TIME. BS RANGES 140-157 THIS SHIFT. RECEIVED INSULIN PER SLIDING COVERAGE. THIS RN SPOKE c SPOUSE REGARDING PATIENT TO WEAR CPAP AT HS. PER SPOUSE PATIENT HAS NOT BEEN COMPLIANT c CPAP AT HOME, BUT SHE WILL BRING IT OVER TO TRY IT TONIGHT. VITAL SIGNS REVIEWED. RECEIVED SCHEDULED MEDS PER EMAR. PIV TO R FOREARM SALINE LOCKED. CALL LIGHT IN REACH.
[2022-07-14] VITALS (13 sets, daily range): BP systolic 89–154; BP diastolic 42–66
[2022-07-14 04:59] LABS: Hematocrit 21.5 % (37.0-53.0); Hemoglobin 6.6 g/dL (13.5-17.5); Mean Corpuscular HGB 23.7 pg (26.0-34.0); Mean Corpuscular HGB Conc 30.7 g/dL (31.5-36.5); Mean Corpuscular Volume 77 fL (80-100); Mean Platelet Volume 9.5 fL (9.1-12.4); Platelet Count 224 K/mm3 (150-400); RDW Coefficient Variation 15.9 % (11.7-14.2); RDW Standard Deviation 44.9 fL (35.1-46.3); Red Blood Cell Count 2.79 M/mm3 (4.30-5.90); White Blood Cell Count 7.57 K/mm3 (4.00-11.30)
[2022-07-14 05:51] LABS: Anion Gap 6 mmol/L (6-16); Blood Urea Nitrogen 47 mg/dL (8-24); Bun/Creatinine Ratio 26.9 (12.0-20.0); CO2, Blood 30 mmol/L (21-32); Calcium, Blood 8.7 mg/dL (8.5-10.1); Chloride, Blood 103 mmol/L (98-108); Creatinine, Blood 1.75 mg/dL (0.60-1.20); Ferritin, Serum 314 ng/mL (26-388); Glomerular Filtration Rate 39 (60-); Glucose, Blood 130 mg/dL (70-99); Iron Serum 22 ug/dL (65-175); Phosphorus, Blood 3.9 mg/dL (2.5-4.9); Sodium, Blood 139 mmol/L (136-145); Total Iron Binding Capacity 184 ug/dL (250-450)
--- NOTE | 2022-07-14 07:17 | NUR ---
SHIFT SUMMARY: SONDRA IS A&OX4. VSS, NO ACUTE EVENTS OVERNIGHT. PT WAS ABLE TO SLEEP ON AND OFF, USED CALL LIGHT APPROPRIATELY. RT ENSURED PT'S HOME CPAP WAS READY FOR USE, BUT PT DECLINED TO USE IT. PT MAINTAINED SATS ABOVE 90% ON 1 L VIA NC. NO INSULIN COVERAGE REQUIRED THIS SHIFT. TELE IN PLACE. HEMOGLOBIN DOWN TO 6.6 FROM 7.2, DOWNWARD TREND NOTED. GFR TRENDING DOWN, CREATININE TRENDING UP. PT AND STATED THAT THEY PLAN FOR PT TO DISCHARGE HOME WITH [facility] AND [employer] [facility]. EMAIL SENT TO CARE MANAGEMENT DEPARTMENT. SONDRA IS RESTING QUIETLY IN BED WITH THE CALL LIGHT IN REACH, CONTINUOUS PULSE OX IN PLACE. REPORT GIVEN TO DAY SHIFT RN.
--- NOTE | 2022-07-14 12:22 | NUR ---
NOTE: DR. WATSON IN ROOM AT THIS TIME FOR CONSULT, SPOKE TO PATIENT AND SPOUSE c THE PLAN OF CARE.
[2022-07-14 18:00] LABS: Hematocrit 28.3 % (37.0-53.0); Hemoglobin 8.8 g/dL (13.5-17.5)
--- NOTE | 2022-07-14 18:19 | NUR ---
SHIFT SUMMARY: AT AROUND 0800 PATIENT WOKE UP FROM THE DEPTH SLEEP SLIGHTLY CONFUSE. PATIENT CALLING OUT FOR HELP AND STATED, "I CANNOT MOVE." THIS RN ASSURE PATIENT THAT HE IS ABLE TO MOVE IN BED. PATIENT STATED, "WHAT I CAN." THIS RN ASK PATIENT OF WHAT YEAR, PATIENT STATED, "IT IS YEAR 1940." THIS RN REORIENT PATIENT. PATIENT REPORTS HE HAD A REALLY GREAT SLEEP LAST NIGHT AND "FEELING NOT RIGHT WHEN HE WOKE UP THIS AM." PATIENT WAS IRRITABLE THIS AM, BUT THE DAY PROGRESS AND HAD A VISIT c SPOUSE HE BECOME PLEASANT AND MORE COOPERATIVE c CARE. PATIENT RECEIVED 2 UNIT OF PRBC TODAY. HEMOGLOBIN 6.6 THIS AM AND AFTER RECEIVING 2 UNITS OF PRBC HAS IMPROVE TO 8.8. STOOL SAMPLE FOR OCCULT WAS SENT TO LAB, AWAITING FOR RESULT. DR. WATSON CAME AND SAW PATIENT TODAY FOR CONSULT. PLAN TO HAVE UPPER ENDOSCOPY DONE ON SATURDAY AFTERNOON. BS RANGES 116-206, RECEIVED INSULIN COVERAGE PER SLIDING SCALE. VITAL SIGNS HAS IMPROVED. PATIENT DENIES DIZZINESS, AND SOB. REPORTS PAIN TO NECK, MEDICATED X1 c TYLENOL c GOOD RELIEF. VITAL SIGNS REVIEWED. RECEIVED SCHEDULED MEDS PER EMAR. PIV TO R FOREARM SALINE LOCKED.
[2022-07-15 03:37] VITALS: BP 100/60
[2022-07-15 05:55] LABS: Hematocrit 25.6 % (37.0-53.0); Mean Corpuscular HGB 24.7 pg (26.0-34.0); Mean Corpuscular HGB Conc 31.3 g/dL (31.5-36.5); Mean Corpuscular Volume 79 fL (80-100); Mean Platelet Volume 9.5 fL (9.1-12.4); Platelet Count 269 K/mm3 (150-400); RDW Coefficient Variation 15.9 % (11.7-14.2); RDW Standard Deviation 46.5 fL (35.1-46.3); Red Blood Cell Count 3.24 M/mm3 (4.30-5.90); White Blood Cell Count 9.29 K/mm3 (4.00-11.30)
[2022-07-15 06:01] LABS: Albumin, Blood 3.3 g/dL (3.4-5.0); Anion Gap 6 mmol/L (6-16); Blood Urea Nitrogen 56 mg/dL (8-24); Bun/Creatinine Ratio 28.3 (12.0-20.0); CO2, Blood 30 mmol/L (21-32); Chloride, Blood 101 mmol/L (98-108); Creatinine, Blood 1.98 mg/dL (0.60-1.20); Glomerular Filtration Rate 34 (60-); Glucose, Blood 138 mg/dL (70-99); Potassium, Blood 4.1 mmol/L (3.5-5.5); Sodium, Blood 137 mmol/L (136-145)
[2022-07-15 07:56] VITALS: BP 153/57
--- NOTE | 2022-07-15 07:58 | NUR ---
PATIENT AWAKE ALL NIGHT AND VERY ANXIOUS. LATISHA CALLED HIS SEVERAL TIMES OVERNIGHT TO TELL HER HE NEEDED TO GO HOME. HE SAT AT THE EDGE OF THE BED RUBBING HIS THIGHS AND COMPLAINING OF SEVERE PAIN. INITIALLY, HE REFUSED ONE PERCOCET AND WOULD ONLY TAKE TYLENOL SAYING THAT WOULD BE ENOUGH WITH HIS MELATONIN. LATER IN THE EVENING, HE CALLED AND VERY TEARFULLY STATED HE COULD NOT STAND HIS PAIN AND AGREED TO TAKE THE STRONGER MEDICATION. AFTER THAT, HE FELL ASLEEP FOR ABOUT 30 MINUTES AND WOKE SAYING HE FELT MUCH BETTER. IN THE AM, PRIOR TO HIS SPEAKING TO HIS , HE REFUSED TO HAVE HIS LABS DRAWN OR TAKE HIS AM MEDICATION. LATER THE PRINTING SIGN MACHINE OPERATOR INFORMED THIS RN THAT SHE HAD TOLD HIM TO "DO WHAT HE WAS TOLD", AND THEY WOULD SPEAK WITH THE DOCTOR ABOUT GOING HOME IN THE MORNING.
[2022-07-15 12:20] LABS: Stool Occult Bld Immuno 1 Positive (NEGATIVE)
[2022-07-15] MEDS ORDERED: MIRALAX17 GM PO (13:23)
[2022-07-15] MEDS ORDERED: OXYC5 PO (13:26)
[2022-07-15] MEDS ORDERED: MORP20L PO (13:27)
[2022-07-15] MEDS ORDERED: LORA.5 PO (13:27)
--- NOTE | 2022-07-15 14:33 | NUR ---
NOTES/DISCHARGE SUMMARY: PATIENT A&OX3. ANXIOUS TO GO HOME AND DOES NOT WANT TO CONTINUE ANYMORE TX. PER PATIENT "I JUST WANT TO GO HOME BE IN MY OWN BED c MY AND CAT AT BEDSIDE AND I'M HAPPY c IT." ALSO, PATIENT STATED, "NO MORE TX I AM TIRED AND I'M DONE." PLEASANT AND COOPERATIVE c CARE. HEMOGLOBIN SLIGHTLY DOWN FROM 8.8 YESTERDAY AFTER RECEIVING 2 PRBC TO 8.0 THIS AM. PATIENT CONTINUES TO LOOSING BLOOD. GUIACC SAMPLE WAS SENT TO LAB YESTERDAY, AWAITING FOR RESULT. PATIENT IS POSITIVE FOR ORTHOSTATIC HYPOTENSION BP DROOPED 20 PLUS POINTS FROM SITTING TO STANDING UP. PATIENT DENIES DIZZINESS, N/V, CP/PRESSURE, SOB. PATIENT ON O2 AT BASELINE 1L VIA NE c SPO2 RANGES 96-99%. PATIENT RECEIVED SCHEDULED MEDS PER EMAR. EATING AND DRINKING GOOD. PIV TO R FOREARM DC'D. PATIENT DISCHARGE HOME c HOSPICE CARE THROUGH [facility]. DISCHARGE INSTRUCTION PACKET GIVE TO SPOUSE (FITO). EDUCATE PATIENT AND SPOUSE REGARDING ADMITTING DX, PAIN MANAGEMENT, END OF LIFE CARE AND PRESCRIBED MEDICATIONS. PATIENT AND SPOUSE STATED UNDERSTANDING AND NO FURTHER QUESTIONS. RX WAS FAXED TO PATIENT PREFERRED PHARMACY ([facility]). RX HARD SCRIPT GIVEN TO SPOUSE. HOSPICE REFERRAL AND DISCHARGE MEDS WAS FAXED TO [facility] AT FAXED NUMBER: [phone]. ALL PATIENT PERSONAL BELONGINGS WERE SENT HOME c THE PATIENT. PATIENT LEFT THE ROOM AT AROUND 1410. PATIENT WAS TRANSPORTED VIA WHEELCHAIR BY BRIQUETTE MAKER STAFFJCARLOS TO PATIENT SPOUSE PRIVATE VEHICLE AT [facility].
== END 2022-07-15 14:06 | disposition hospice, home (50) | DRG 177 ==
LOC: ER 20:22 → MEDS 23:34 → PCU 23:34 → MEDS 07-11 19:40
PROVIDERS: Internal Medicine; Student in an Organized Health Care Education/Training Program; ADMIT Internal Medicine
PROC: 30233N1 Transfusion of Nonautologous Red Blood Cells into Peripheral Vein, Percutaneous Approach (ICD-10-PCS; principal; 2022-07-15)
DX: J69.0 Pneumonitis due to inhalation of food and vomit (principal); G93.41 Metabolic encephalopathy; J96.21 Acute and chronic respiratory failure with hypoxia; I50.22 Chronic systolic (congestive) heart failure; I42.0 Dilated cardiomyopathy; I11.0 Hypertensive heart disease with heart failure; Z66 Do not resuscitate; D72.829 Elevated white blood cell count, unspecified; G47.33 Obstructive sleep apnea (adult) (pediatric); E78.5 Hyperlipidemia, unspecified; F41.9 Anxiety disorder, unspecified; F32.A Depression, unspecified; E11.40 Type 2 diabetes mellitus with diabetic neuropathy, unspecified; I48.0 Paroxysmal atrial fibrillation; I49.5 Sick sinus syndrome; Z51.5 Encounter for palliative care; G89.29 Other chronic pain; K44.9 Diaphragmatic hernia without obstruction or gangrene; N20.0 Calculus of kidney; I44.1 Atrioventricular block, second degree; M54.9 Dorsalgia, unspecified; I95.1 Orthostatic hypotension; E11.22 Type 2 diabetes mellitus with diabetic chronic kidney disease; N18.30 Chronic kidney disease, stage 3 unspecified; G47.00 Insomnia, unspecified; K59.00 Constipation, unspecified; D63.1 Anemia in chronic kidney disease; D50.0 Iron deficiency anemia secondary to blood loss (chronic); R62.7 Adult failure to thrive; Z68.31 Body mass index [BMI] 31.0-31.9, adult; Z86.73 Personal history of transient ischemic attack (TIA), and cerebral infarction without residual deficits; Z90.49 Acquired absence of other specified parts of digestive tract; Z98.890 Other specified postprocedural states; Z85.54 Personal history of malignant neoplasm of ureter; Z79.01 Long term (current) use of anticoagulants; Z85.59 Personal history of malignant neoplasm of other urinary tract organ; Z79.4 Long term (current) use of insulin; Z87.891 Personal history of nicotine dependence; Z87.440 Personal history of urinary (tract) infections; Z99.89 Dependence on other enabling machines and devices; Z90.12 Acquired absence of left breast and nipple; Z85.038 Personal history of other malignant neoplasm of large intestine; Z79.891 Long term (current) use of opiate analgesic; Z95.0 Presence of cardiac pacemaker; Z98.52 Vasectomy status; Z88.2 Allergy status to sulfonamides; Z88.8 Allergy status to other drugs, medicaments and biological substances; Z79.899 Other long term (current) drug therapy
CPT/HCPCS: 36415; 36430; 70450; 71045; 80053; 80069; 81001; 82274; 82728; 82803; 82947; 83540; 83550; 83605; 83735; 83880; 84145; 84443; 84484; 85014; 85018; 85025; 85027; 85610; 85730; 86850; 86900; 86901; 86923; 87040; 92610; 93005; 93010; 94762; 96365; 97110; 97162; 97166; 97530; 97535; 99285-25; A9270; C9113; J1815; J1956; J2405; J7050; P9016; P9047